=== PATIENT | female | born 1940 | race Caucasian/White ===

== ENCOUNTER 2016-11-01 16:29 | Inpatient (IN) ==
[2016-11-01] MEDS ORDERED: DiphenhydrAMINE 25 MG CAPSULE PO PRN (17:53)
[2016-11-01] MEDS ORDERED: BISACODYL 10 MG SUPPOSITORY RECTALLY PRN (17:53)
[2016-11-01] MEDS ORDERED: LORazepam 1 MG TABLET PO PRN (17:53)
[2016-11-01] MEDS ORDERED: SENNOSIDES 8.6 MG TABLET PO PRN (17:53)
[2016-11-01] MEDS ORDERED: FALL RISK - PHARMACY CONSULT XX PRN (18:00)
[2016-11-01] MEDS: Oxycodone *IR* 5 MG TABLET PO PRN ×2 (18:43→23:29)
[2016-11-01] MEDS ORDERED: WARFARIN - PHARMACY CONSULT MC ONE (18:45)
[2016-11-01] MEDS: COLCHICINE 0.6 MG TABLET PO SCH (21:03)
[2016-11-01] MEDS: BENAZEPRIL 20 MG TABLET PO SCH (21:03)
[2016-11-01] MEDS: DOCUSATE SODIUM 100 MG CAPSULE PO SCH (21:03)
[2016-11-01] MEDS: SENNOSIDES 8.6 MG TABLET PO SCH (21:04)
[2016-11-01] MEDS: ENOXAPARIN 40 MG/0.4 ML INJECTION SQ SCH (21:04)
[2016-11-01] MEDS: FLECAINIDE 50 MG TABLET PO SCH (21:05)
[2016-11-01] MEDS: ACETAMINOPHEN 325 MG TABLET PO SCH (21:05)
[2016-11-01] MEDS: SALINE FLUSH 10ml SYRINGE IVF PRN (21:09)
[2016-11-02] MEDS: MEXILETINE 150 MG CAPSULE PO SCH ×3 (01:07→18:56)
[2016-11-02] MEDS: Oxycodone *IR* 5 MG TABLET PO PRN ×3 (07:38→14:26)
--- NOTE | 2016-11-02 08:03 | Pharmacy Consult ---
Pharmacy Consult-Warfarin - Laboratory Information 11/02/16 04:14 INR 1.33 H - Consult Information 75 y.o. Female with history of chronic a. fib. Patient takes a home warfarin dose of 6 mg po daily. Warfarin dosing was stopped in preparation for 10/31/16 ortho. surgery and was restarted post op. Goal INR range= 2.0 to 3.0. INR remains subtherapeutic and patient has Lovenox 40 mg SQ daily ordered. Will give Warfarin 6 mg po today. Pharmacy will continue to monitor and adjust as needed. Thank you, Sandie Sparks [facility] Date INR dose 10/31 1.07 6 mg 11/01 1.16 6 mg 11/02 1.33 plan: 6 mg
[2016-11-02] MEDS ORDERED: FALL RISK - PHARMACY CONSULT XX ONE (09:00)
[2016-11-02] MEDS ORDERED: POLYETHYL GLYCOL 3350 17gm PACKET PO SCH (09:00)
[2016-11-02] MEDS: COLCHICINE 0.6 MG TABLET PO SCH (09:05)
[2016-11-02] MEDS: BENAZEPRIL 20 MG TABLET PO SCH ×2 (09:05→20:37)
[2016-11-02] MEDS: FLECAINIDE 50 MG TABLET PO SCH ×2 (09:05→20:37)
[2016-11-02] MEDS: ACETAMINOPHEN 325 MG TABLET PO SCH ×4 (09:05→20:41)
[2016-11-02] MEDS: DOCUSATE SODIUM 100 MG CAPSULE PO SCH (09:05)
[2016-11-02] MEDS: OMEGA-3 ACID ESTERS 1 GM CAPSULE PO SCH (09:05)
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
--- NOTE | 2016-11-02 09:35 | IRU History & Physical Report ---
[facility] Date: Chief complaint: My right knee hurts and my left foot hurts HPI: Ms. Black was seen on the inpatient rehabilitation unit. She lives in [place], [place] and her primary care provider is Robin Lopez APRN. She formerly was seen by Dr. Gonzalez who has since moved out of the area. She was having worsening pain in the right knee secondary to primary degenerative arthritis. Patient is followed by Dr. Salamanca who had scheduled an elective right total knee replacement. Prior to the knee replacement getting done, on 10/27/2016 she noted discomfort in the left foot. It became worse and worse and by the next day on October 28 she was in severe pain in the left foot. She came to the emergency department at [facility] on 10/29/2016. Left foot was puffy. There had been no trauma. Uric acid was elevated at 8.6. Venous Doppler was negative. Emergency room physician felt as though the most likely diagnosis was that of acute gout. She was started on colchicine and oxycodone. She states that the pain is better but still is inhibiting her activity quite a bit. She states that she has never had a previous diagnosis of gout but in retrospect she believes that she may have had some in the past. She subsequently was admitted and underwent right total knee replacement by Dr. Salamanca on 10/31/2016. Surgery went well. Because of continued pain in the left foot as well as history of atrial fibrillation and previous DVT which will be subsequently described, she was felt to be a good candidate for inpatient rehabilitation. Prior to admission she lived in her own home independently with her . She has 2 steps at home to get in and out of the house. She was using a cane due to the right knee pain. At the present time she is walking with a walker. With regard to other medical issues, she has a history of atrial fibrillation which she states she has had for a number of years. She states that she has never been on an anticoagulant medication for the atrial fibrillation (although had been on warfarin for the prior DVT). She underwent preoperative cardiac evaluation by Dr. Lema. On 06/23/2016 the patient underwent echocardiogram demonstrating trace mitral regurgitation and with normal ejection fraction at 60 %. On 06/29/2016 she underwent nuclear medicine treadmill test demonstrating an ejection fraction of 73%. 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 For that reason she underwent cardiac catheterization on 07/25/2016. Ejection fraction was 65% on ventriculogram and she had only minimal coronary disease. No intervention was recommended and she was cleared for surgery. She also reports a several year history of significant dyspnea with activity. She says this is limiting to her at times. She does not have a cough. She does not have a tobacco use history. She does not believe she has had prior evaluation of her dyspnea apart from the cardiac evaluation. The reference to the echocardiogram in the outpatient note does not indicate elevated pulmonary artery systolic pressure. In addition, the patient developed acute swelling in the right leg about a year ago. She was subsequently diagnosed with deep venous thrombosis and has therefore been on warfarin for the past 1 year apparently predominantly for the DVT. The following medical conditions are noted and require physician monitoring and treatment. 1. Acute gout with continuing pain. This will impact her rehab and will require ongoing physician management and probable medication adjustment. 2. Hx of DVT diagnosed about a year ago. She will be restarting her warfarin and is at risk for recurrent DVT or bleeding problems with the anticoagulant. 3. Dyspnea: Patient reports a history of chronic dyspnea of uncertain etiology. She does not believe this is been evaluated apart from her cardiac evaluation. This will impact her therapy and recovery as well and will need further evaluation from a medical standpoint as well as nursing monitoring. 4. Severe constipation: She is plagued by constipation. She has not had a bowel movement for the past 6 days. She is at risk for obstruction and dehydration in this regard. 5. Recent total knee replacement. This will require intensive individualized physical therapy and occupational therapy to return her to her previous level of independent functioning. The following therapies will be needed: 1. Physical therapy: for transfers and ambulation and stairs. 2. Occupational therapy: for ADL's and transfers. 3. Dietitian: She will be monitored with regard to adequate nutrition in the immediate postoperative timeframe. 4. Medical management: for the above conditions. 5. 24 hour Rehabilitation Nursing to monitor and address the following: Swelling of the left foot, pain management, dyspnea with activity. Review of Systems - Constitutional Constitutional: Present: anorexia, fatigue - EENMT Eyes: Absent: blurry vision, change in vision, diplopia Balance: Absent: vertigo Mouth/Throat: Absent: pain, sore throat - Cardiovascular Cardiovascular: Present: dyspnea on exertion, edema. Absent: chest pain, palpitations, syncope, orthopnea, heart murmur Rhythm: Present: regular rhythm Vascular: Absent: Raynaud's, intermittent claudication - Respiratory Respiratory: Present: dyspnea, chest congestion. Absent: cough, hemoptysis, wheezing, pain on inspiration, excessive phlegm production - Gastrointestinal Gastrointestinal: Present: change in bowel habits, constipation. Absent: abdominal pain, diarrhea, dyspepsia, early satiety, hematemesis, hematochezia, melena, nausea, vomiting - Musculoskeletal Musculoskeletal: Present: abnormal gait, other (painful and puffy left foot without trauma.) - Integumentary/Breasts Integumentary: Absent: alopecia, change in hair, erythema - Neurological Neurological: Present: headache(s). Absent: abnormal movements, abnormal speech , confusion, convulsions, memory loss - Psychiatric Psychiatric: Absent: anhedonia, anxiety, depression, difficulty concentrating, hopelessness [facility] Patient Stated Medical History Cardiac Arrhythmia Yes: history of A Fib Coronary Artery Disease Yes: LAD ischemia, cardiac clearance per Dr. Carlson Heart Murmur Yes: per patient. Trace of MR per echo. EF 60 % Hypertension Yes Sleep Apnea Yes: no CPAP Constipation Yes: Miralax; ExLax Hepatitis Yes: after reaction to Nystatin Hx Incontinence Yes Osteoarthritis Yes Anesthesia Reactions Yes: has been told by Anesthesia she has ERICH Other Yes: gout Post Menopausal Yes Clinic Medical History (Last Reviewed 10/13/16 @ 09:31 by Yasmany Salamanca MD) High cholesterol (Chronic Medical) HTN (hypertension) (Chronic Medical) Arthritis (Chronic Medical) Hepatitis A (Chronic Medical) DVT (deep venous thrombosis) (Resolved Medical) Medical History Updates: Dyspnea with activitysomewhat chronic. Constipation Surgical History: rt wrist, rt ankle, Lt foot, rt knee arthroscopy Family History: Family History (Last Reviewed 10/13/16 @ 09:31 by Yasmany Salamanca MD) Mother HTN (hypertension) Colon polyps Patient's father ran a filling station. He was killed in a fire apparently started by gasoline accidentally. He was 59 years old. Mother is still living in a [facility]. Has had a portion of her colon removed. Had a severe leg infection and now has a toe infection. - Social History Smoking status: Never smoker Substance use type: does not use Alcohol intake: never Alcohol intake frequency: does not drink Current occupational status: retired Current residence: Apartment/Private Home Social history: Patient is and lives with her in [facility]. 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 Medications Home Medications Medication Instructions Recorded Confirmed Type Benazepril HCl 20 mg PO BID #0 tab 07/25/16 11/01/16 History Cholecalciferol (Vitamin D3) 1 cap PO DAILY #0 07/25/16 11/01/16 History [Vitamin D3] Metoprolol Tartrate 25 mg PO BIDWM #0 tab 07/25/16 11/01/16 History Multivitamin with Minerals [Hair, 1 tab PO DAILY #0 07/25/16 11/01/16 History Skin and Nails] Verapamil HCl 120 mg PO BID #0 07/25/16 11/01/16 History hydroCHLOROthiazide 25 mg PO WB #0 tab 07/25/16 11/01/16 History [Hydrochlorothiazide] Flecainide [Tambocor] 50 mg PO BID 10/29/16 11/01/16 History Furosemide [Lasix] 20 mg PO 2XW 10/29/16 11/01/16 History Victor-3/Dha/Epa/Fish Oil [Fish Oil 1,000 mg PO DAILY 10/29/16 11/01/16 History 1,000 mg Softgel] Warfarin Sodium [Warfarin Sodium] 1 mg PO DAILY 10/29/16 11/01/16 History Warfarin Sodium [Warfarin Sodium] 5 mg PO DAILY 10/29/16 11/01/16 History Acetaminophen [Tylenol] 650 mg PO QID 11/01/16 11/01/16 History Ativan 1 mg PO HS PRN 11/01/16 11/01/16 History Bisacodyl Supp [Dulcolax] 1 supp MA DAILY PRN 11/01/16 11/01/16 History DiphenhydrAMINE [Benadryl] 25 mg PO Q6H PRN 11/01/16 11/01/16 History Docusate Sodium [Colace] 1 cap PO BID 11/01/16 11/01/16 History Enoxaparin [Lovenox] 40 mg SQ Q24H 11/01/16 11/01/16 History Milk of Magnesia [Mom] 30 ml PO O 11/01/16 11/01/16 History Nozin Nasal Swab 1 each BRITTNEY 0600,1400,2200 11/01/16 11/01/16 History Oxycodone *Ir* [Roxicodone *Ir*] 5 - 15 mg PO Q3H PRN 11/01/16 11/01/16 History Polyethylene Glycol 3350 [Miralax] 1 packet PO DAILY 11/01/16 11/01/16 History Sennosides 17.2 mg PO DAILY PRN 11/01/16 11/01/16 History Sennosides 17.2 mg PO HS 11/01/16 11/01/16 History Allergies Allergy/AdvReac Type Severity Reaction Status Date / Time nystatin Allergy Severe ANAPHYLACTIC Verified 10/31/16 06:06 SHOCK adhesive tape AdvReac Unknown peels her Verified 10/31/16 06:06 skin Results IRU - Labs Labs: Laboratory reviewed, prior notes reviewed, outside cardiology evaluation reviewed. Exam Vital Signs: Temperature 98.2 F 11/01/16 20:00 Pulse Rate 73 11/01/16 21:07 Respiratory Rate 18 11/01/16 21:07 Blood Pressure 144/85 H 11/01/16 20:00 Pulse Oximetry 97 11/01/16 21:07 Height/Weight/BMI: Height 1.73 m Weight 98.3 kg Body Mass Index 32.9 - Constitutional Present: mild distress, well nourished, well developed, obese. Absent: disheveled - Routine HEENT Exam Head: Present: normocephalic, atraumatic. Absent: cushingoid faces, laceration Eye: Present: EOMI, PERRL. Absent: conjunctival icterus, scleral injection, conjunctivae pink, periorbital swelling ENT: Present: mucous membranes moist - Routine Neck Exam Present: supple, full ROM. Absent: lymphadenopathy, thyromegaly - Routine Chest/Breast/Axilla Exam Chest wall: Absent: tenderness Axillae: Absent: lymphadenopathy - Routine Respiratory Exam Present: CTA bilaterally. Absent: accessory muscle use, respiratory distress, rhonchi, stridor, wheezes, crackles - Routine Cardiovascular Exam Present: S1, S2, no murmur, irregularly irregular. Absent: S3, S4 - Routine Abdominal Exam Present: soft, normoactive bowel sounds, non distended. Absent: tenderness, distended, rebound, guarding, firm, organomegaly, mass - Routine Extremities Exam Present: edema Comments: Left foot remains puffy. No bruising and no redness and no warmth is noted. Pulses are good. First MP joint not particularly more involved in any other part of the foot. Right knee is wrapped and I did not remove the dressing. - Routine Skin Exam Present: intact, dry. Absent: erythema, urticaria, rash - Routine Neurological Exam Present: alert, oriented X3, CN II-XII intact, abnormal gait. Absent: sensory deficit, motor deficit - Routine Psychiatric Exam Present: normal affect, normal thought process, cooperative, good insight, good judgment. Absent: suicidal ideation, depressed, anxious Sepsis Assessment - Evaluation Sepsis screening result: No Definite Risk IRU A/P (1) Primary osteoarthritis of right knee Current visit: No Status: Chronic Patient was using a cane at home and now is using a walker after her surgery. She will need to learn new gait and ambulation skills along with transfers. (2) Status post total knee replacement, right Current visit: Yes Status: Acute There is no evidence of infection or inflammation at surgical site. (3) A-fib Qualifiers: Atrial fibrillation type: chronic Qualified Code(s): I48.2 - Chronic atrial fibrillation Current visit: No Status: Chronic Patient is currently on warfarin although she states it is for her previous DVT. She has minimal coronary disease on catheterization. Has been followed by cardiology. We are restarting her Coumadin post surgery. She will need to be monitored with regard to INRs as well as lightheadedness palpitations or other symptoms of her atrial fibrillation. (4) HTN (hypertension) Qualifiers: Hypertension type: essential hypertension Qualified Code(s): I10 - Essential (primary) hypertension Current visit: No Status: Chronic She is on antihypertensive medications and her blood pressures will be monitored. (5) Acute gout Qualifiers: Gout site: foot Gout etiology: idiopathic Current visit: Yes Status: Acute Has apparent acute gout involving the left foot. This is somewhat atypical presentation. However has been improved by colchicine. Continues to have pain in the foot which will impact her therapy. (6) Constipation by delayed colonic transit Current visit: Yes Status: Acute Has acute constipation superimposed upon chronic difficulty with her bowels. She is at risk for obstruction and dehydration. We will work on mobilization of stool. DVT Prophylaxis: SCD's, Coumadin Resuscitation Status: Full Code - Course Hospital Course: Monroe Barrientos MD: - Interventions to Obtain Goals PT Treatment Plan: Balance/Proprioception, Functional Activities, Gait Training , Patient/Family Education OT Treatment Plan: ADL (Basic Care), Balance Training, IADL, Pt./Family Education, Ther. Exercise for ADL Goals Progress/Modifications: The patient will require an intensive individualized program of physical therapy , occupational therapy as well as 24-hour nursing rehabilitation and physician oversight. She has several medical conditions that we will be following closely including hypertension, atrial fibrillation with reinstitution of warfarin, acute gouty arthritis which may require medication adjustment and also which will impact her therapy. In addition she has severe constipation and history of DVT.
--- NOTE | 2016-11-02 10:05 | IRU 24Hr Post Admit Eval ---
24 Hr Post Admission Physical - Relevant Changes Relevant Changes: No Reviewed: I have reviewed the patient's information and concur with the finding and results of the pre-admission screen. Certification: I certify the patient for rehabilitation. - Patient Condition (1) Primary osteoarthritis of right knee Status: Chronic Code(s): M17.11 - Unilateral primary osteoarthritis, right knee Classification: Present on IRF Admission, Diagnosis Requiring Medical Follow Up (2) Status post total knee replacement, right Status: Acute Code(s): Z96.651 - Presence of right artificial knee joint Classification: Present on IRF Admission, IRF Tx That Should Address Diagnosis, Diagnosis Requiring Medical Follow Up (3) A-fib Status: Chronic Qualifiers: Atrial fibrillation type: chronic Qualified Code(s): I48.2 - Chronic atrial fibrillation Code(s): I48.91 - Unspecified atrial fibrillation Classification: Present on IRF Admission, IRF Tx That Should Address Diagnosis, Diagnosis Requiring Medical Follow Up (4) HTN (hypertension) Status: Chronic Qualifiers: Hypertension type: essential hypertension Qualified Code(s): I10 - Essential (primary) hypertension Code(s): I10 - Essential (primary) hypertension Classification: Present on IRF Admission, Diagnosis Requiring Medical Follow Up (5) Acute gout Status: Acute Qualifiers: Gout site: foot Gout etiology: idiopathic Code(s): M10.9 - Gout, unspecified Classification: Present on IRF Admission, IRF Tx That Should Address Diagnosis, Diagnosis Requiring Medical Follow Up (6) Constipation by delayed colonic transit Status: Acute Code(s): K59.01 - Slow transit constipation Classification: Present on IRF Admission, IRF Tx That Should Address Diagnosis, Diagnosis Requiring Medical Follow Up - Prior Functional Status Lives With: Spouse Residence Type: Apartment/Private Home Assitive Devices: Straight Cane Prior Functional Status: Indep. at home or school, Used assistive device - Current Functional Status Failed Alternative Therapy: Arrived from Acute Care Patient Requirements: The patient requires oversight by rehabilitation physician to manage their rehabilitation treatment plan and multidisciplinary approach to care that can only be provided in an IRF and requires a multidisciplinary approach to care, provided by professional PTs, OTs, STs, dieticians, RTs, rehabilitation nurses and is not available in lesser levels of care. Limitiations Req: Mobility Impairment, ADL Impairment, Limited Mobility, Respiratory Impairment Physical Therapy Minutes: 90 Occupational Therapy Minutes: 90 Therapy: The patient is to receive therapy at least 5 days a week. - Complications/Comorbidities Impact on Functional Outcomes: Her severe pain in the left foot as well as her chronic dyspnea will impact functional outcome. This will need to be monitored and treated as best we can in order to allow her to achieve her previous level of functioning at home independently. Barriers to Discharge: Weakness, Pain Control, Medical Limitation - Plan to Avoid Complications Plan to Avoid Complications: The patient cannot receive this care in a lesser intensive setting such as [facility] or Outpatient Therapy due to the patient requiring the following : Monitoring of INR as we restart her Coumadin, adjustment of medications regarding her acute gout, need for 24-hour rehabilitation nursing to monitor her oxygen saturations and dyspnea along with pain management, monitoring her blood pressure in the acute postoperative phase.
--- NOTE | 2016-11-02 11:08 | Progress Note ---
Progress Note: Verena reports continued problem with a headache. This is in the frontal area and the back of her neck. This sounds like a muscle contraction headache to me. We will try an ice pack as needed. Neurologically she is fully intact.
[2016-11-02] MEDS ORDERED: WARFARIN 6 MG TABLET PO ONE (12:00)
[2016-11-02] MEDS ORDERED: FLEET PHOSPHO - SODA ENEMA 133ml PR PRN (15:18)
[2016-11-02] MEDS ORDERED: BISACODYL 10 MG SUPPOSITORY RECTALLY SCH (20:00)
[2016-11-02] MEDS: SENNOSIDES 8.6 MG TABLET PO SCH (20:37)
[2016-11-02] MEDS: ENOXAPARIN 40 MG/0.4 ML INJECTION SQ SCH (20:38)
[2016-11-02] MEDS: POLYETHYL GLYCOL 3350 17gm PACKET PO SCH (20:39)
[2016-11-03] MEDS: MEXILETINE 150 MG CAPSULE PO SCH ×3 (01:00→17:11)
[2016-11-03] MEDS: Oxycodone *IR* 5 MG TABLET PO PRN ×3 (07:37→17:42)
[2016-11-03] MEDS ORDERED: ONDANSETRON ODT 4 MG TABLET PO PRN (08:29)
[2016-11-03] MEDS: FUROSEMIDE 20 MG TABLET PO SCH (08:54)
[2016-11-03] MEDS: ACETAMINOPHEN 325 MG TABLET PO SCH ×4 (08:54→20:15)
[2016-11-03] MEDS: FLECAINIDE 50 MG TABLET PO SCH ×2 (08:54→20:14)
[2016-11-03] MEDS: OMEGA-3 ACID ESTERS 1 GM CAPSULE PO SCH (08:54)
[2016-11-03] MEDS: BENAZEPRIL 20 MG TABLET PO SCH ×2 (08:54→20:14)
[2016-11-03] MEDS: POLYETHYL GLYCOL 3350 17gm PACKET PO SCH ×2 (08:55→20:18)
--- NOTE | 2016-11-03 09:47 | Pharmacy Consult ---
Pharmacy Consult-Warfarin - Laboratory Information 11/02/16 11/03/16 04:14 04:19 INR 1.33 H 1.52 H 75 y.o. Female with history of chronic a. fib. Patient takes a home warfarin dose of 6 mg po daily. Warfarin dosing was stopped in preparation for 10/31/16 ortho. surgery and was restarted post op. Goal INR range= 2.0 to 3.0. Date INR Dose 10/31 1.07 6 mg 11/01 1.16 6 mg 11/02 1.33 6 mg 11/03 1.52 Plan 6 mg INR remains subtherapeutic and patient has Lovenox 40 mg SQ daily ordered. Will give Warfarin 6 mg po today. Pharmacy will continue to monitor and adjust as needed. Thanks for the Protocol, Meng Ghotra, Pharmacist.
--- NOTE | 2016-11-03 10:29 | IRU Progress Note ---
- Subjective/Serverity of Illness Verena was evaluated in her room today. She is struggling with nausea. Also has discomfort in the area below the right knee which was replaced. Medical status will be reviewed subsequently. From a therapy standpoint she is just getting started with therapies. She is cooperative. However the headache and the neck discomfort have been somewhat limiting for her. She is walking with contact-guard assistance over 100 feet. However requires maximal assistance for transfers. Update on medical conditions as follows: 1. Acute gout with continuing pain. Colchicine has now been discontinued. She states that the left foot is somewhat puffy but it is no longer painful. It is significantly improved. 2. Hx of DVT diagnosed about a year ago. Patient remains on warfarin with pharmacy monitoring and dosing. No evidence of active bleeding. 3. Dyspnea: Patient reports a history of chronic dyspnea of uncertain etiology. No change in degree of dyspnea. There is no cough and sputum and her pulmonary exam is negative. 4. Severe constipation: Patient received an enema yesterday with good results. Nevertheless, she tends toward constipation she states. 5. Recent total knee replacement. Pain control continues to be an issue. She is on oxycodone. She would like to have another pain pill at present after having received on about 3 hours or so ago. 6. Nausea: She is been nauseated for the past 24 hours off and on. She has not thrown up but does feel as though there is food in the back of her throat at times. 8/2 a bowl of cream of wheat this morning. Does not have abdominal pain. We discussed the possibility of reflux being a factor. She is getting Zofran with some benefit. 6. Headaches: Headaches are in general better. Does have some discomfort in the back of her neck. Ice pack is beneficial for her. Exam Vital Signs: Temperature 98.1 F 11/03/16 08:00 Pulse Rate 77 11/03/16 08:00 Respiratory Rate 20 11/03/16 08:00 Blood Pressure 149/69 H 11/03/16 08:00 Pulse Oximetry 93 11/03/16 08:00 Height/Weight/BMI: Height 1.73 m Weight 97.8 kg Body Mass Index 32.9 Comments: The patient is awake, alert and oriented. She is sitting in her room. She does complain of right knee pain as anticipated. However also has significant nausea without vomiting. Unclear if this is related to the pain medication or not. Pupils are equal. The neck is supple. Chest: Clear to auscultation bilaterally. Cor: irregular rhythm with no gallop, click nor murmur Abd: soft with normo-active bowel sounds. There are no masses, no tenderness and no guarding. Extremities: Stephanie- wound evaluation is unremarkable. Right leg is somewhat edematous. Results IRU - Labs Labs: I reviewed her labs and discussed with the hospitalist service. Sepsis Assessment - Evaluation Sepsis screening result: No Definite Risk IRU A/P (1) Primary osteoarthritis of right knee Current visit: No Status: Chronic Continues to complain of discomfort at the operative site. This is anticipated. Chief area of discomfort is actually an area just below the knee proper. No evidence of active infection is seen. (2) Status post total knee replacement, right Current visit: Yes Status: Acute (3) A-fib Qualifiers: Atrial fibrillation type: chronic Qualified Code(s): I48.2 - Chronic atrial fibrillation Current visit: Yes Status: Chronic Patient remains in what appears to be chronic atrial fibrillation. She is on warfarin with doses monitored and treated by pharmacy. No evidence of active bleeding. No lightheadedness and no chest pain. (4) HTN (hypertension) Qualifiers: Hypertension type: essential hypertension Qualified Code(s): I10 - Essential (primary) hypertension Current visit: No Status: Chronic Blood pressures are borderline in the 140s. (5) Acute gout Qualifiers: Gout site: foot Gout etiology: idiopathic Current visit: Yes Status: Acute Presumptive diagnosis of gout involving the left foot. There is some puffiness remaining but no pain. This is a significant improvement. Colchicine has been discontinued. (6) Constipation by delayed colonic transit Current visit: Yes Status: Acute Continues to complain of constipation although did have results from her enema yesterday. (7) Nausea Current visit: Yes Status: Acute Patient has been struggling with nausea over the past 24 hours. It is not clearly related to pain nor pain medication. However I think this is still a possibility. Could also be related to underlying reflux. Have discussed with hospitalists and we will start a PPI. I did check on interaction with Flecanide and Mexitil and it looks like there is no reaction between the PPI and these medications. (8) Muscle contraction headache Current visit: Yes Status: Acute Continues to complain of headache although it is improved. Main area of discomfort is the posterior neck. This is improved with the use of an ice pack. Her symptoms are consistent with a muscle contraction headache. No other neurologic symptoms are noted at this time but we are monitoring. DVT Prophylaxis: SCD's, Coumadin Resuscitation Status: Full Code - Course Hospital Course: Monroe Barrientos MD: 11/03/16 10:34 Patient has multiple medical problems that we are monitoring including atrial fibrillation with use of warfarin, muscle contraction headache, nausea and possible reflux, gout and constipation. She is progressing with therapy. Walking over 100 feet with contact-guard assist. Requires maximal assistance for most transfers however. - Interventions to Obtain Goals PT Treatment Plan: Balance/Proprioception, Functional Activities, Gait Training , Patient/Family Education, Therapeutic Exercise OT Treatment Plan: ADL (Basic Care), Balance Training, IADL, Pt./Family Education, Ther. Exercise for ADL Goals Progress/Modifications: Please note that the patient's individual plan of care was developed and documented today, requiring review of therapy notes, medical conditions and anticipated functional recovery. This required additional medical decision making with regard to interaction of the patient's medical issues with the anticipated functional recovery. Please see separate document from today. Time spent with patient and on floor reviewing data and documentin minutes Barriers to dismissal: Pain in right knee, nausea, headache and neck discomfort , constipation. Medical decision-making: Multiple issues were addressed today including her nausea which is possibly related to pain medication or pain itself. Could also be related to reflux. PPI has been started today. In addition we discussed her constipation and she is on appropriate intervention in this regard. Also evaluated her gout. Colchicine has been discontinued. Left foot puffy but no longer painful. Also discussed pain in the right knee as well as her headaches. I have coordinated treatment with hospitalists as well.
--- NOTE | 2016-11-03 10:39 | IRU Plan of Care ---
[facility] Overall Plan of Care - Date Date: 11/03/16 - Patient Impairments (1) Primary osteoarthritis of right knee Code(s): M17.11 - Unilateral primary osteoarthritis, right knee Status: Chronic Classification: Present on IRF Admission, Diagnosis Requiring Medical Follow Up (2) Status post total knee replacement, right Code(s): Z96.651 - Presence of right artificial knee joint Status: Acute Classification: Present on IRF Admission, IRF Tx That Should Address Diagnosis, Diagnosis Requiring Medical Follow Up (3) A-fib Qualifiers: Atrial fibrillation type: chronic Qualified Code(s): I48.2 - Chronic atrial fibrillation Code(s): I48.91 - Unspecified atrial fibrillation Status: Chronic Classification: Present on IRF Admission, IRF Tx That Should Address Diagnosis, Diagnosis Requiring Medical Follow Up (4) HTN (hypertension) Qualifiers: Hypertension type: essential hypertension Qualified Code(s): I10 - Essential (primary) hypertension Code(s): I10 - Essential (primary) hypertension Status: Chronic Classification: Present on IRF Admission, Diagnosis Requiring Medical Follow Up (5) Acute gout Qualifiers: Gout site: foot Gout etiology: idiopathic Code(s): M10.9 - Gout, unspecified Status: Acute Classification: Present on IRF Admission, IRF Tx That Should Address Diagnosis, Diagnosis Requiring Medical Follow Up (6) Constipation by delayed colonic transit Code(s): K59.01 - Slow transit constipation Status: Acute Classification: Present on IRF Admission, IRF Tx That Should Address Diagnosis, Diagnosis Requiring Medical Follow Up (7) Nausea Code(s): R11.0 - Nausea Status: Acute Classification: IRF Tx That Should Address Diagnosis, Complications Since IRF Admission (8) Muscle contraction headache Code(s): G44.209 - Tension-type headache, unspecified, not intractable Status : Acute Classification: IRF Tx That Should Address Diagnosis, Complications Since IRF Admission - Relevant Changes Relevant Changes: No Reviewed: I have reviewed the patient's information and concur with the finding and results of the pre-admission screen. Certification: I certify the patient for rehabilitation. - Medical Prognosis Medical Prognosis: Good Vital Signs: Last Vital Signs Temp 98.1 F 11/03/16 08:00 Pulse 77 11/03/16 08:00 Resp 20 11/03/16 08:00 BP 149/69 H 11/03/16 08:00 Pulse Ox 93 11/03/16 08:00 - Anticipated Interventions Anticipated Interventions: The patient requires inpatient IRF care for PT, OT, and/or ST for residuals remaining from right total knee replacement and recent acute gouty arthritis resulting in muscular weakness and strength deficits. ROM Deficit: Right Lower Extremity Strength Deficits: Right Lower Extremity - FIM Ambulation Distance: 197 Toileting Adaptive Equipment: Grab Bars Number of Incontinent Voids: 1 - Current Functional Status Failed Alternative Therapy: Arrived from Acute Care Patient Requires: The patient requires oversight by rehabilitation physician to manage their rehabilitation treatment plan and multidisciplinary approach to care that can only be provided in an IRF and requires a multidisciplinary approach to care, provided by professional PTs, OTs, STs, dieticians, RTs, rehabilitation nurses and is not available in lesser levels of care. Physical Therapy Minutes: 90 Occupational Therapy Minutes: 90 Therapy: The patient is to receive therapy at least 5 days a week. - Anticipated LOS/Outcomes Anticipated Functional Outcome: It is anticipated that the patient will achieve modified independent level of functioning and be able to return to her previous level of care at her home with . Anticipated Length of Stay: 7 Anticipated DC Destination: Home, Self [facility]ci Safety Plan: The patient will be provided with the development of a Home Safety Plan for return to a home or home-like environment and and to ensure safety post discharge. - Plan to Avoid Complications Barriers to Attaining Goals: Weakness, Pain Control, Medical Limitation Plan to Avoid Complications: The patient cannot receive this care in a lesser intensive setting such as Penitentiary or Outpatient Therapy due to the patient requiring the following : 24 hour rehabilitation nursing monitoring and treatment of pain at the operative site, headache management and monitoring, gouty arthritis treatment and monitoring, new onset of nausea with possible reflux monitoring and treatment. .
--- NOTE | 2016-11-03 11:18 | Progress Note ---
Subjective: Madeline is seen today in follow up for recent right total knee arthroplasty on by Dr. Salamanca. She is seen in her room, sitting in her recliner and admits that she feels a little tired at the movement due to recently completing her morning therapy. She complains of right knee pain which she rates 6/10 while sitting and states is much worse with movement and ambulation. She also complains of neck pain and stiffness which she believes is related to muscular tension. She denies any fevers, changes in vision though does admit to a frontal headache at times which she reports is identical to her prior headaches. She states that ice helps her neck pain. She also reports increased nausea immediately after eating without emesis today, as well as decreased appetite. She was successful in having a large BM yesterday with the aid of bowel motivation but believes that she still has some stool present. She has a history of chronic constipation. She denies any chest pain, shortness of breath, abdominal pain or dysuria. She remains on Coumadin for anticoagulation in light of her history of a-fib and follows with Dr. Lema. She has obstructive sleep apnea which was recently diagnosed on a sleep study on 09/12/16. She openly refuses using a CPAP machine as she felt it would be more of a bother than a help. She says she has heard that if the machines are not kept clean, "they can make you sick." Review of medical records and nursing notes indicates that overall she is doing well. On exam, she is sitting in her recliner and is alert and orientated x 3. She is noted to tachypneic initially on exam but states it is due to recently having completed therapy. Cardiac exam reveals regular rate and rhythm and lungs are diminished bilaterally without cough, wheezing or rales. Abdomen is soft, nontender with active bowel sounds. Dressing to right knee is clean, dry and intact. 1+ edema noted to bilateral lower extremities and N/V intact. CBC today revealed stable anemia with hemoglobin at 10.7. INR remains subtherapeutic at 1.52 with pharmacy to manage. Vital signs stable, remaining afebrile. No signs of meningismus or neurologic changes. Objective Vital signs: Temperature 98.1 F 11/03/16 08:00 Pulse Rate 77 11/03/16 08:00 Respiratory Rate 20 11/03/16 08:00 Blood Pressure 149/69 H 11/03/16 08:00 Pulse Oximetry 93 11/03/16 08:00 Height/Weight/BMI: Height 5 ft 8 in Weight 215 lb 9.793 oz Body Mass Index 32.9 - Constitutional Present: mild distress (neck pain - ice pack in place with improvement.), well nourished, well developed, cooperative - Routine HEENT Exam Head: Present: normocephalic, atraumatic Eye: Present: PERRL. Absent: conjunctival icterus ENT: Present: mucous membranes moist - Routine Respiratory Exam Present: decreased breath sounds, CTA bilaterally. Absent: rhonchi, stridor, wheezes Comments: tachypnea on exam, improves with rest. - Routine Cardiovascular Exam Present: RRR, S1, S2 - Routine Abdominal Exam Present: soft, normoactive bowel sounds, non distended, non tender - Routine Extremities Exam Present: edema (1+ bilaterally), pulses intact, normal capillary refill Comments: limited ROM right knee 2nd to recent TKA. - Routine Back/Spine/Pelvis Exam Back/Spine: Present: full ROM - Routine Musculoskeletal Exam Musculoskeletal: Present: moving extremities well, limited range of motion ( right knee) - Routine Skin Exam Present: dry, warm. Absent: jaundice Comments: bandage to right knee is clean, dry and intact. - Routine Neurological Exam Present: alert, oriented X3, moving all extremities, normal speech. Absent: facial asymmetry - Routine Lymphatic Exam Lymphatic: Absent: lymphedema - Routine Psychiatric Exam Present: normal affect, cooperative, good insight, good judgment Results - Labs CBC & Chem 7: 11/03/16 04:19 11/02/16 04:14 Assessment and Plan (1) Status post total knee replacement, right Current visit: Yes Status: Acute (2) ERICH (obstructive sleep apnea) Current visit: Yes Status: Acute (3) A-fib Current visit: Yes Status: Chronic DVT Prophylaxis: SCD's, Coumadin GI Prophylaxis: other (Priolosec) Resuscitation Status: Full Code Assessment and Plan: 11/03/16: Omaran. Assessment S/P right knee arthroplasty 10/31/16 - Dr. Salamanca. Eric. fib with chronic anticoagulation with warfarin, chronic - Dr. Lema. Coronary artery disease, chronic. * Echo performed 06/23/16 showed trace mitral regurg and ejection fraction 60%. On 06/29/16 she underwent nuclear treadmill test with ejection fraction 73%, however there was moderate LAD ischemia on the study. She then underwent cardiac catheterization on 07/25/16. She had findings of only minimal coronary disease, so no intervention was recommended. She reports a history of "heavy breathing" and shortness of breath with activity which sometimes limits her. She denies any history of COPD or asthma. Patient has obstructive sleep apnea. This was recently diagnosed on sleep study 09/12/16. Patient te High cholesterol, chronic. HTN (hypertension), chronic. Osteoarthritis, chronic.l Hepatitis following a reaction to nystatin 02/2016, resolved. DVT(occurred post hospital stay) -2015, resolved. Gout, chronic. Sleep apnea, chronic. * Diagnosed on sleep study 09/12/16; refused CPAP machine as she felt it would be more of a bother. Plan: Continue therapy and pain control per Dr. Barrientos for improvement in functional ability and strength. Patient complains of nausea following eating small amounts. History of constipation. Continue bowel motivation with Dulcolax suppository PRN as well as Senokot and colace. Will obtain KUB now for further evaluation of nausea and constipation. Initiate Prilosec for possible GERD in light of symptoms of hiccups and fullness. Zofran as needed for nausea/vomiting. Hemoglobin stable following minor blood loss anemia with hemoglobin dropping from 14.5 preoperatively to current value of 10.7. Continue to monitor hemoglobin closely and monitor stools closely for signs of bleeding in light of anticoagulation with Coumadin. Continue Coumadin for anticoagulation with pharmacy to manage. Current INR 1.52. Continue bridge therapy with Lovenox for DVT prophylaxis until INR is therapeutic. Vital signs well controlled. Monitor blood pressures closely. Continue Lotensin, lasix, HCTZ metoprolol for blood pressure as well as flecainide and verapamil for chronic a-fib. Currently sinus rhythm. Encourage incentive spirometry for pulmonary toileting and monitor daily weight for signs of fluid overload. Will recheck labs on 11/06 to monitor blood counts, electrolytes and renal function. - Time spent with patient 25 - 35 minutes Sepsis Assessment - Evaluation Sepsis screening result: No Definite Risk Hospital Course Summary Disclaimer: The visit summary below is not to be considered part of the above Progress Note. Hospital Course: Status post total right knee arthroplasty - Dr. Salamanca (10/31/16) Hypertension Chronic Anticoagulation History of atrial fibrillation History of DVT Obstructive sleep apnea Gout Osteoarthritis Chronic constipation 11/02/16 hospitalist consult Agree with placement to IRU for intensive individualized program to improve her functional abilities/balance, etc Pharmacy will manage patient's anticoagulation. Will follow gout symptoms. Will DC the colchicine as she is past her acute flare and to reduce polypharmacy. Her uric acid level is elevated. Would recommend she follow-up with her PCP on an outpatient basis to discuss pros and cons of initiation of antihyperuricemic therapy depending on how frequently she has flares. Encouraged patient to follow-up with her PCP to discuss CPAP for her obstructive sleep apnea. Highly encourage her to comply with this. Continue to work on bowel motivation Pain control per Dr. Barrientos Appreciate the consult. 11/03/16 Continue therapy and pain control per Dr. Barrientos for improvement in functional ability and strength. Patient complains of nausea following eating small amounts. History of constipation. Continue bowel motivation with Dulcolax suppository PRN as well as Senokot and colace. Will obtain KUB now for further evaluation of nausea and constipation. Initiate Prilosec for possible GERD in light of symptoms of hiccups and fullness. Zofran as needed for nausea/vomiting. Hemoglobin stable following minor blood loss anemia with hemoglobin dropping from 14.5 preoperatively to current value of 10.7. Continue to monitor hemoglobin closely and monitor stools closely for signs of bleeding in light of anticoagulation with Coumadin. Continue Coumadin for anticoagulation with pharmacy to manage. Current INR 1.52. Continue bridge therapy with Lovenox for DVT prophylaxis until INR is therapeutic. Vital signs well controlled. Monitor blood pressures closely. Continue Lotensin, Lasix, HCTZ metoprolol for blood pressure as well as flecainide and verapamil for chronic a-fib. Currently sinus rhythm. Encourage incentive spirometry for pulmonary toileting and monitor daily weight for signs of fluid overload. Will recheck labs on 11/06 to monitor blood counts, electrolytes and renal function.
[2016-11-03] MEDS: OMEPRAZOLE 20 MG CAPSULE PO SCH (11:58)
[2016-11-03] MEDS ORDERED: WARFARIN 6 MG TABLET PO SCH (12:00)
--- NOTE | 2016-11-03 12:03 | XRay Report ---
Indication: nausea, constipation PROCEDURE: XR KUB w upright: Encounter: Initial Comparison: None Findings: The visualized lung bases are clear. There is no free air on the upright view. The bowel gas pattern is nonobstructive and nonspecific. Gas is seen in nondilated small and large bowel to the level of the rectum. Moderate stool is seen throughout the colon. Impression: Nonobstructive nonspecific bowel gas pattern. .
[2016-11-03] MEDS: SENNOSIDES 8.6 MG TABLET PO SCH (20:14)
[2016-11-03] MEDS: ENOXAPARIN 40 MG/0.4 ML INJECTION SQ SCH (20:18)
[2016-11-04] MEDS: MEXILETINE 150 MG CAPSULE PO SCH ×3 (00:51→17:21)
[2016-11-04] MEDS: OMEPRAZOLE 20 MG CAPSULE PO SCH ×2 (04:35→08:22)
[2016-11-04] MEDS: OMEGA-3 ACID ESTERS 1 GM CAPSULE PO SCH (08:20)
[2016-11-04] MEDS: BENAZEPRIL 20 MG TABLET PO SCH ×2 (08:21→20:03)
[2016-11-04] MEDS: POLYETHYL GLYCOL 3350 17gm PACKET PO SCH ×2 (08:22→19:35)
[2016-11-04] MEDS: FLECAINIDE 50 MG TABLET PO SCH ×2 (08:22→20:03)
[2016-11-04] MEDS: ACETAMINOPHEN 325 MG TABLET PO SCH ×4 (08:23→23:05)
[2016-11-04] MEDS: Oxycodone *IR* 5 MG TABLET PO PRN ×4 (08:26→23:02)
--- NOTE | 2016-11-04 09:16 | Pharmacy Consult ---
Pharmacy Consult-Warfarin - Laboratory Information 11/02/16 11/03/16 11/04/16 04:14 04:19 04:37 INR 1.33 H 1.52 H 1.75 H COUMADIN CONSULT: 75 y.o. Female with history of chronic a. fib. Patient takes a home warfarin dose of 6 mg po daily. Warfarin dosing was stopped in preparation for 10/31/16 ortho. surgery and was restarted post op. Goal INR range= 2.0 to 3.0. Date INR Dose 10/31 1.07 6 mg 11/01 1.16 6 mg 11/02 1.33 6 mg 11/03 1.52 6 mg 11/04 1.75 Plan 6 mg INR remains subtherapeutic and patient has Lovenox 40 mg SQ daily ordered. Will give Warfarin 6 mg po today. Pharmacy will continue to monitor and adjust as needed. Thanks for the Protocol, Meng Ghotra, Pharmacist.
[2016-11-04] MEDS ORDERED: WARFARIN 6 MG TABLET PO SCH (12:00)
--- NOTE | 2016-11-04 14:53 | Progress Note ---
Subjective: Patient is seen in her room after finishing therapy. Overall she feels she is doing okay. She has been having some pain, currently it is 4/10. No complaint of chest pain or shortness of breath. No lightheadedness or dizziness. Reports appetite is okay. She no longer has the foot pain which was attributed to gout. Objective Vital signs: Temperature 98.4 F 11/04/16 08:00 Pulse Rate 73 11/04/16 08:00 Respiratory Rate 10 11/04/16 08:00 Blood Pressure 137/67 11/04/16 08:00 Pulse Oximetry 94 11/04/16 08:00 Height/Weight/BMI: Height 1.73 m Weight 97.8 kg Body Mass Index 32.9 - Constitutional Present: well nourished, well developed - Routine HEENT Exam ENT: Present: mucous membranes moist - Routine Respiratory Exam Present: CTA bilaterally. Absent: wheezes - Routine Cardiovascular Exam Present: RRR. Absent: murmur - Routine Extremities Exam Present: edema (to surgical extremity), normal capillary refill - Routine Skin Exam Present: dry, warm - Routine Neurological Exam Present: alert, oriented X3 - Routine Lymphatic Exam Lymphatic: Absent: adenopathy - Routine Psychiatric Exam Present: normal affect, cooperative Results - Labs CBC & Chem 7: 11/03/16 04:19 11/02/16 04:14 Assessment and Plan (1) ERICH (obstructive sleep apnea) Current visit: Yes Status: Acute (2) A-fib Current visit: Yes Status: Chronic (3) Status post total knee replacement, right Current visit: Yes Status: Acute Assessment and Plan: 11/03/16: Lida. Assessment S/P right knee arthroplasty 10/31/16 - Dr. Salamanca. A. fib with chronic anticoagulation with warfarin, chronic - Dr. Lema. Coronary artery disease, chronic. High cholesterol, chronic. HTN (hypertension), chronic. Osteoarthritis, chronic.l Hepatitis following a reaction to nystatin 02/2016, resolved. DVT(occurred post hospital stay) -2015, resolved. Gout, chronic. Sleep apnea, chronic. Plan: Overall doing well. Will recheck labs on 11/06 to monitor blood counts, electrolytes and renal function. Sepsis Assessment - Evaluation Sepsis screening result: No Definite Risk Hospital Course Summary Disclaimer: The visit summary below is not to be considered part of the above Progress Note. Hospital Course: Status post total right knee arthroplasty - Dr. Salamanca (10/31/16) Hypertension Chronic Anticoagulation History of atrial fibrillation History of DVT Obstructive sleep apnea Gout Osteoarthritis Chronic constipation 11/02/16 hospitalist consult Agree with placement to IRU for intensive individualized program to improve her functional abilities/balance, etc Pharmacy will manage patient's anticoagulation. Will follow gout symptoms. Will DC the colchicine as she is past her acute flare and to reduce polypharmacy. Her uric acid level is elevated. Would recommend she follow-up with her PCP on an outpatient basis to discuss pros and cons of initiation of antihyperuricemic therapy depending on how frequently she has flares. Encouraged patient to follow-up with her PCP to discuss CPAP for her obstructive sleep apnea. Highly encourage her to comply with this. Continue to work on bowel motivation Pain control per Dr. Barrientos Appreciate the consult. 11/03/16 Continue therapy and pain control per Dr. Barrientos for improvement in functional ability and strength. Patient complains of nausea following eating small amounts. History of constipation. Continue bowel motivation with Dulcolax suppository PRN as well as Senokot and colace. Will obtain KUB now for further evaluation of nausea and constipation. Initiate Prilosec for possible GERD in light of symptoms of hiccups and fullness. Zofran as needed for nausea/vomiting. Hemoglobin stable following minor blood loss anemia with hemoglobin dropping from 14.5 preoperatively to current value of 10.7. Continue to monitor hemoglobin closely and monitor stools closely for signs of bleeding in light of anticoagulation with Coumadin. Continue Coumadin for anticoagulation with pharmacy to manage. Current INR 1.52. Continue bridge therapy with Lovenox for DVT prophylaxis until INR is therapeutic. Vital signs well controlled. Monitor blood pressures closely. Continue Lotensin, Lasix, HCTZ metoprolol for blood pressure as well as flecainide and verapamil for chronic a-fib. Currently sinus rhythm. Encourage incentive spirometry for pulmonary toileting and monitor daily weight for signs of fluid overload. Will recheck labs on 11/06 to monitor blood counts, electrolytes and renal function. 11/04/16 Overall doing well. Will recheck labs on 11/06 to monitor blood counts, electrolytes and renal function.
[2016-11-04] MEDS: SENNOSIDES 8.6 MG TABLET PO SCH (20:02)
[2016-11-04] MEDS: ENOXAPARIN 40 MG/0.4 ML INJECTION SQ SCH (20:12)
[2016-11-05] MEDS: MEXILETINE 150 MG CAPSULE PO SCH ×3 (03:55→17:22)
[2016-11-05] MEDS: OMEPRAZOLE 20 MG CAPSULE PO SCH (06:08)
[2016-11-05] MEDS: OMEGA-3 ACID ESTERS 1 GM CAPSULE PO SCH (08:36)
[2016-11-05] MEDS: FLECAINIDE 50 MG TABLET PO SCH ×2 (08:36→19:44)
[2016-11-05] MEDS: POLYETHYL GLYCOL 3350 17gm PACKET PO SCH ×2 (08:37→19:46)
[2016-11-05] MEDS: ACETAMINOPHEN 325 MG TABLET PO SCH ×4 (08:37→19:43)
[2016-11-05] MEDS: Oxycodone *IR* 5 MG TABLET PO PRN ×3 (08:38→19:43)
--- NOTE | 2016-11-05 08:48 | Pharmacy Consult ---
Pharmacy Consult-Warfarin - Laboratory Information 11/02/16 11/03/16 11/04/16 04:14 04:19 04:37 INR 1.33 H 1.52 H 1.75 H 11/05/16 04:34 INR 2.04 H COUMADIN CONSULT: 75 y.o. Female with history of chronic a. fib. Patient takes a home warfarin dose of 6 mg po daily. Warfarin dosing was stopped in preparation for 10/31/16 ortho. surgery and was restarted post op. Goal INR range= 2.0 to 3.0. Date INR Dose 10/31 1.07 6 mg 9/6 1.16 6 mg 9/7 1.33 6 mg 9/8 1.52 6 mg 9/9 1.75 6 mg 9/10 2.06 Plan 6 mg INR remains subtherapeutic and patient has Lovenox 40 mg SQ daily ordered. Will give Warfarin 6 mg po today. Pharmacy will continue to monitor and adjust as needed. Thanks for the Protocol, Meng Ghotra, Pharmacist.
[2016-11-05] MEDS: BENAZEPRIL 20 MG TABLET PO SCH ×2 (08:58→19:45)
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
[2016-11-05] MEDS ORDERED: LACTULOSE 20 GM/30 ML ORAL LIQUID PO ONE (10:47)
[2016-11-05] MEDS ORDERED: METOCLOPRAMIDE 10mg/2ml INJECTION IVP PRN (10:49)
[2016-11-05] MEDS: SALINE FLUSH 10ml SYRINGE IVF PRN (11:46)
[2016-11-05] MEDS ORDERED: WARFARIN 6 MG TABLET PO SCH (12:00)
[2016-11-05] MEDS ORDERED: LACTULOSE 20 GM/30 ML ORAL LIQUID PO PRN (16:28)
[2016-11-05] MEDS: SENNOSIDES 8.6 MG TABLET PO SCH (19:44)
[2016-11-05] MEDS: ENOXAPARIN 40 MG/0.4 ML INJECTION SQ SCH (19:45)
[2016-11-06] MEDS: MEXILETINE 150 MG CAPSULE PO SCH ×3 (00:48→17:25)
[2016-11-06] MEDS: BENAZEPRIL 20 MG TABLET PO SCH ×3 (02:19→20:49)
[2016-11-06] MEDS: POLYETHYL GLYCOL 3350 17gm PACKET PO SCH ×3 (02:19→20:49)
[2016-11-06] MEDS: SENNOSIDES 8.6 MG TABLET PO SCH ×3 (02:19→20:50)
[2016-11-06] MEDS: ENOXAPARIN 40 MG/0.4 ML INJECTION SQ SCH (02:19)
[2016-11-06] MEDS: FLECAINIDE 50 MG TABLET PO SCH ×3 (02:20→20:50)
[2016-11-06] MEDS: ACETAMINOPHEN 325 MG TABLET PO SCH ×5 (02:20→20:50)
[2016-11-06] MEDS: OMEPRAZOLE 20 MG CAPSULE PO SCH (05:58)
[2016-11-06] MEDS: Oxycodone *IR* 5 MG TABLET PO PRN ×4 (08:12→18:46)
[2016-11-06] MEDS: FUROSEMIDE 20 MG TABLET PO SCH (08:13)
[2016-11-06] MEDS: OMEGA-3 ACID ESTERS 1 GM CAPSULE PO SCH (08:14)
--- NOTE | 2016-11-06 09:35 | Pharmacy Consult ---
Pharmacy Consult-Warfarin - Laboratory Information 11/02/16 11/03/16 11/04/16 04:14 04:19 04:37 INR 1.33 H 1.52 H 1.75 H 11/05/16 11/06/16 04:34 04:52 INR 2.04 H 2.25 H - Consult Information We will give warfarin 5mg po today. Thanks
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
--- NOTE | 2016-11-06 10:29 | Progress Note ---
Subjective: Verena is seen today in follow up for her recent total right knee arthroplasty. She is seen while sitting in her recliner with physical therapy present. She states that she feels like she is doing better, getting stronger and that therapy is going well. She has been requesting more walks each day and is able to walk to the gift shop and back, which she is pleased with. She continues to have some right knee pain which she states is improved, currently 5 /10. She continues to complain of diffuse lateral neck pain but appears to have more mobility today. She states that she was able to shower today for the first time since admission and that the warm water helped her neck. Yesterday she complained of feeling generally weak and tired and was noted to have some lower blood pressures that she is used to. She was given NS 500cc and reports that she is feeling better today. She denies any fevers, chills, chest pain, shortness of breath, abdominal pain, nausea, vomiting or dysuria. She admits that her appetite comes and goes and her bowels are moving. Labs today were stable with slight improvement in her anemia with hemoglobin at 10.2. INR therapeutic at 2.25. She does have a history of right lower extremity DVT. Objective Vital signs: Temperature 98.1 F 11/06/16 08:00 Pulse Rate 69 11/06/16 08:00 Respiratory Rate 16 11/06/16 08:00 Blood Pressure 140/80 H 11/06/16 08:11 Pulse Oximetry 93 11/06/16 08:00 Height/Weight/BMI: Height 5 ft 8 in Weight 209 lb 10.554 oz Body Mass Index 32.9 - Constitutional Present: no acute distress, well nourished, well developed, cooperative - Routine HEENT Exam Head: Present: normocephalic, atraumatic Eye: Present: PERRL. Absent: conjunctival icterus ENT: Present: mucous membranes moist - Routine Respiratory Exam Present: CTA bilaterally. Absent: rhonchi, stridor, wheezes, crackles - Routine Cardiovascular Exam Present: RRR, S1, S2 - Routine Abdominal Exam Present: soft, normoactive bowel sounds, non distended, non tender - Routine Extremities Exam Present: edema (3+ right lower extremity; 1-2+ left lower extremity.) Comments: bandage to right knee is clean, dry and intact. Increased swelling to right leg as compared to left with increased ecchymosis and varicose veins; no calf tenderness; - Elvia's sign. - Routine Back/Spine/Pelvis Exam Back/Spine: Present: full ROM, pain with flexion (neck - improved.). Absent: erythema, warmth - Routine Musculoskeletal Exam Musculoskeletal: Present: moving extremities well, limited range of motion ( right knee) - Routine Skin Exam Present: intact, dry, warm. Absent: erythema, jaundice Comments: afebrile; increased swelling and ecchymosis to right lower extremity. - Routine Neurological Exam Present: alert, oriented X3, moving all extremities, hearing grossly intact, normal speech. Absent: facial asymmetry - Routine Lymphatic Exam Lymphatic: Present: lymphedema - Routine Psychiatric Exam Present: normal affect, cooperative Results - Labs CBC & Chem 7: 11/06/16 04:52 11/06/16 04:52 Assessment and Plan (1) Status post total knee replacement, right Current visit: Yes Status: Acute (2) ERICH (obstructive sleep apnea) Current visit: Yes Status: Acute (3) A-fib Current visit: Yes Status: Chronic DVT Prophylaxis: Lovenox, Coumadin GI Prophylaxis: other (Prilosec) Resuscitation Status: Full Code Assessment and Plan: ASSESSMENT Status post total right knee arthroplasty - Dr. Salamanca (10/31/16). Anemia, post-op, acute. Hypertension, chronic. Chronic Anticoagulation on Coumadin. History of atrial fibrillation, chronic. GERD, chronic. History of DVT right lower extremity, resolved. Obstructive sleep apnea, chronic. Gout, chronic. Osteoarthritis, chronic. Chronic constipation. PLAN Overall, Verena is doing well and is pleased with her increased strength and therapy participation. She reports being able to walk to the gift shop and back. Will continue therapies and pain control per Dr. Barrientos. She continues to require narcotic pain control but states that her overall pain is improving, currently 5/10. In light of her chronic constipation and narcotic use, her constipation has worsened. She was able to have a BM with aggressive bowel motivation. Continue with Senokot BID, lactulose and other stool softeners. Right lower extremity has 3+ edema with ecchymosis and varicose veins noted as compared to left lower extremity with 1-2+ edema. History of DVT in right lower extremity. INR therapeutic at 2.25 with pharmacy to manage. She denies any calf pain and Elvia's sign is negative. Continue to monitor closely. Will hold off on US at this time. Lovenox discontinued today in light of therapeutic INR. Hemoglobin trending up. Monitor periodically throughout admission. Team meeting on 11/07; anticipate discharge in near future. - Time spent with patient 25 - 35 minutes Sepsis Assessment - Evaluation Sepsis screening result: No Definite Risk Hospital Course Summary Disclaimer: The visit summary below is not to be considered part of the above Progress Note. Hospital Course: Status post total right knee arthroplasty - Dr. Salamanca (10/31/16) Hypertension Chronic Anticoagulation History of atrial fibrillation History of DVT Obstructive sleep apnea Gout Osteoarthritis Chronic constipation 11/02/16 hospitalist consult Agree with placement to IRU for intensive individualized program to improve her functional abilities/balance, etc Pharmacy will manage patient's anticoagulation. Will follow gout symptoms. Will DC the colchicine as she is past her acute flare and to reduce polypharmacy. Her uric acid level is elevated. Would recommend she follow-up with her PCP on an outpatient basis to discuss pros and cons of initiation of antihyperuricemic therapy depending on how frequently she has flares. Encouraged patient to follow-up with her PCP to discuss CPAP for her obstructive sleep apnea. Highly encourage her to comply with this. Continue to work on bowel motivation Pain control per Dr. Barrientos Appreciate the consult. 11/03/16 Continue therapy and pain control per Dr. Barrientos for improvement in functional ability and strength. Patient complains of nausea following eating small amounts. History of constipation. Continue bowel motivation with Dulcolax suppository PRN as well as Senokot and colace. Will obtain KUB now for further evaluation of nausea and constipation. Initiate Prilosec for possible GERD in light of symptoms of hiccups and fullness. Zofran as needed for nausea/vomiting. Hemoglobin stable following minor blood loss anemia with hemoglobin dropping from 14.5 preoperatively to current value of 10.7. Continue to monitor hemoglobin closely and monitor stools closely for signs of bleeding in light of anticoagulation with Coumadin. Continue Coumadin for anticoagulation with pharmacy to manage. Current INR 1.52. Continue bridge therapy with Lovenox for DVT prophylaxis until INR is therapeutic. Vital signs well controlled. Monitor blood pressures closely. Continue Lotensin, Lasix, HCTZ metoprolol for blood pressure as well as flecainide and verapamil for chronic a-fib. Currently sinus rhythm. Encourage incentive spirometry for pulmonary toileting and monitor daily weight for signs of fluid overload. Will recheck labs on 11/06 to monitor blood counts, electrolytes and renal function. 11/05/16 Patient had 2 blood pressure readings this morning that have been lower than previously, 104/56 and 106/58. We held her hydrochlorothiazide and benazepril this morning. Lab work shows normocytic anemia with a drop in hemoglobin to 9.9. Chemistries overall are stable. However, with her symptoms of lightheadedness, fatigue, and borderline blood pressures will give normal saline fluid bolus of 500 mL's. Repeat blood work tomorrow morning. Severe constipation: Abdomen exam is benign. Will give Lactulose x1. Continue SennaLax and MiraLAX, both BID. Dulcolax suppository PRN. Reglan Q6h PRN IV for nausea and bowel motility. She may be a candidate for Movantik. 11/06/16 Overall, Verena is doing well and is pleased with her increased strength and therapy participation. She reports being able to walk to the gift shop and back. Will continue therapies and pain control per Dr. Barrientos. She continues to require narcotic pain control but states that her overall pain is improving, currently 5/10. In light of her chronic constipation and narcotic use, her constipation has worsened. She was able to have a BM with aggressive bowel motivation. Continue with Senokot BID, lactulose and other stool softeners. Right lower extremity has 3+ edema with ecchymosis and varicose veins noted as compared to left lower extremity with 1-2+ edema. History of DVT in right lower extremity. INR therapeutic at 2.25 with pharmacy to manage. She denies any calf pain and Elvia's sign is negative. Continue to monitor closely. Will hold off on US at this time. Lovenox discontinued today in light of therapeutic INR. Hemoglobin trending up. Monitor periodically throughout admission. Team meeting on 11/07; anticipate discharge in near future.
[2016-11-06] MEDS: SALINE FLUSH 10ml SYRINGE IVF PRN ×3 (11:42→20:53)
[2016-11-06] MEDS ORDERED: WARFARIN 5 MG TABLET PO SCH (12:00)
[2016-11-06 15:15] VITALS: BMI 32.3
[2016-11-07] MEDS: MEXILETINE 150 MG CAPSULE PO SCH ×3 (01:30→17:33)
[2016-11-07] MEDS: Oxycodone *IR* 5 MG TABLET PO PRN ×5 (03:23→21:51)
[2016-11-07] MEDS: OMEPRAZOLE 20 MG CAPSULE PO SCH (06:14)
--- NOTE | 2016-11-07 08:03 | Pharmacy Consult ---
Pharmacy Consult-Warfarin - Laboratory Information 11/02/16 11/03/16 11/04/16 04:14 04:19 04:37 INR 1.33 H 1.52 H 1.75 H 11/05/16 11/06/16 11/07/16 04:34 04:52 04:34 INR 2.04 H 2[address] is 75 yo F admitted to IRU for OT / PT to ADL, post Rt TKR on 10/31. Hx of chronic A. Fib. Reported on home dose of Warfarin 6mg po daily. Reported previous DVT as well. Pt high risk for thrombotic episode. Warfarin therapy was continued at 6mg daily. Yesterday received 5mg dose Will repeat the 5mg dose again today. Noted drug - drug interaction with Omeprazole 20mg po daily, which can increase INR slightly. Will continue to monitor. Thank you
[2016-11-07] MEDS: ACETAMINOPHEN 325 MG TABLET PO SCH ×4 (08:56→21:54)
[2016-11-07] MEDS: BENAZEPRIL 20 MG TABLET PO SCH ×2 (08:57→21:56)
[2016-11-07] MEDS: FLECAINIDE 50 MG TABLET PO SCH ×2 (08:57→21:55)
[2016-11-07] MEDS: SENNOSIDES 8.6 MG TABLET PO SCH ×2 (08:58→21:56)
[2016-11-07] MEDS: POLYETHYL GLYCOL 3350 17gm PACKET PO SCH ×2 (08:58→21:55)
[2016-11-07] MEDS: OMEGA-3 ACID ESTERS 1 GM CAPSULE PO SCH (08:58)
--- NOTE | 2016-11-07 10:38 | IRU Progress Note ---
- Subjective/Serverity of Illness Verena is improving daily. She is standby assist to supervision level for many activities. She is noticing more bruising in the right lower extremity. She has been on Lovenox and warfarin. Lovenox has now been discontinued by the hospitalist. Her INR is therapeutic. No evidence of bleeding otherwise and her hemoglobin is improving. She does have some nausea for breakfast this morning. However yesterday she did well. Her headache is improved as well. Team meeting yesterday and we will discuss placement but she appears to be improving and nearly ready to go home. Exam Vital Signs: Temperature 98.2 F 11/07/16 07:26 Pulse Rate 70 11/07/16 07:26 Respiratory Rate 16 11/07/16 07:26 Blood Pressure 127/67 11/07/16 07:26 Pulse Oximetry 94 11/07/16 07:26 Height/Weight/BMI: Height 1.73 m Weight 96.5 kg Body Mass Index 32.3 Comments: The patient is awake, alert and oriented and in no acute distress. Pupils are equal. The neck is supple. Chest: Clear to auscultation bilaterally. Cor: RR with no gallop, click nor murmur. Has a history of intermittent atrial fibrillation. She sounds as though she is in a regular rhythm at present. Abd: soft with normo-active bowel sounds. There are no masses, no tenderness and no guarding. Extremities: Significant edema noted of the right lower extremity. Increasing bruising as well. Lovenox has been discontinued. Remains on warfarin. Results IRU - Labs Labs: I reviewed recent lab including INR and hemoglobin. Sepsis Assessment - Evaluation Sepsis screening result: No Definite Risk IRU A/P (1) Primary osteoarthritis of right knee Current visit: No Status: Chronic (2) Status post total knee replacement, right Current visit: Yes Status: Acute Patient is improving with therapies and is standby assistance to supervision level for many activities. The right leg is more swollen and ecchymotic although has been on Lovenox and warfarin. Her INR is therapeutic and not excessive. (3) A-fib Qualifiers: Atrial fibrillation type: chronic Qualified Code(s): I48.2 - Chronic atrial fibrillation Current visit: Yes Status: Chronic She sounds as though she is in a sinus mechanism at present. She is on therapeutic dose of warfarin. States that her dyspnea is improved. No chest pain. (4) HTN (hypertension) Qualifiers: Hypertension type: essential hypertension Qualified Code(s): I10 - Essential (primary) hypertension Current visit: No Status: Chronic (5) Acute gout Qualifiers: Gout site: foot Gout etiology: idiopathic Current visit: Yes Status: Resolved (6) Constipation by delayed colonic transit Current visit: Yes Status: Acute (7) Nausea Current visit: Yes Status: Acute Continues to struggle with chronic nausea. She relates it to a feeling like she needs to belch and then things would be better. However denies actual pain. No vomiting. Overall this is improving. (8) Muscle contraction headache Current visit: Yes Status: Acute Reports headaches are better. DVT Prophylaxis: Lovenox, Coumadin Resuscitation Status: Full Code - Course Hospital Course: Monroe Barrientos MD: 11/03/16 10:34 Patient has multiple medical problems that we are monitoring including atrial fibrillation with use of warfarin, muscle contraction headache, nausea and possible reflux, gout and constipation. She is progressing with therapy. Walking over 100 feet with contact-guard assist. Requires maximal assistance for most transfers however. 11/06/16 09:58 I reviewed the therapy notes. She is improving with regard to transfers and ambulation. She is walking over 900 feet with a walker. Lower extremity dressing is improved. Headaches and nausea continued to be an issue along with constipation. 11/07/16 10:45 Right lower extremity ecchymosis noted. Lovenox discontinued. Remains on warfarin for atrial fib and prior DVT. Patient is improving with therapies. - Interventions to Obtain Goals PT Treatment Plan: Balance/Proprioception, Functional Activities, Gait Training , Patient/Family Education, Therapeutic Exercise OT Treatment Plan: ADL (Basic Care), Balance Training, IADL, Pt./Family Education, Ther. Exercise for ADL Goals Progress/Modifications: We will review her progress is and interdisciplinary team today and make further comments.
[2016-11-07] MEDS ORDERED: WARFARIN 5 MG TABLET PO SCH (12:00)
--- NOTE | 2016-11-07 14:03 | IRU Team Meeting ---
IRU Team Meeting - Nursing Vital Signs: Vital Signs - 24 hr 11/06/16 16:00 11/06/16 21:38 11/07/16 07:26 Temperature 97.6 F 98.3 F 98.2 F Pulse Rate 70 64 70 Respiratory Rate 16 18 16 Blood Pressure 122/63 118/57 127/67 Pulse Oximetry 100 97 94 Current Medications: Acetaminophen (Tylenol) 650 mg PO QID [facility] Last Admin: 11/07/16 13:11 Dose: 650 mg Benazepril HCl (Lotensin) 20 mg PO BID [facility] Last Admin: 11/07/16 08:57 Dose: 20 mg Bisacodyl (Dulcolax) 10 mg RECTALLY DAILY PRN PRN Reason: Constipation Diphenhydramine HCl (Benadryl) 25 mg PO Q6H PRN PRN Reason: Itching Flecainide Acetate (Tambocor) 50 mg PO BID [facility] Last Admin: 11/07/16 08:57 Dose: 50 mg Furosemide (Lasix) 20 mg PO MoFr@0900 [facility] Last Admin: 11/06/16 08:13 Dose: 20 mg Hydrochlorothiazide (Hydrodiuril) 25 mg PO WB [facility] Last Admin: 11/05/16 08:58 Dose: Not Given Lactulose (Lactulose) 20 gm PO Q4H PRN PRN Reason: Constipation Lorazepam (Ativan) 1 mg PO HS PRN PRN Reason: Sleep Metoclopramide HCl (Reglan) 10 mg IVP Q6H PRN Last Admin: 11/05/16 11:51 Dose: 10 mg Metoprolol Tartrate (Lopressor) 25 mg PO BIDWM [facility] Last Admin: 11/07/16 08:57 Dose: 25 mg Mexiletine HCl (Mexitil) 150 mg PO Q8HR [facility] Last Admin: 11/07/16 08:57 Dose: 150 mg Nonzd-1-Smtg Ethyl Esters (Lovaza) 1 gm PO DAILY [facility] Last Admin: 11/07/16 08:58 Dose: 1 gm Omeprazole (Prilosec) 20 mg PO ACB [facility] Last Admin: 11/07/16 06:14 Dose: 20 mg Ondansetron HCl (Zofran Po) 4 mg PO Q4H PRN PRN Reason: Nausea &/or vomiting Last Admin: 09/08/17 08:40 Dose: 4 mg Oxycodone HCl (Roxicodone *Ir*) 5 - 15 mg PO Q3H PRN PRN Reason: Breakthrough pain Last Admin: 11/07/16 07:45 Dose: 15 mg Polyethylene Glycol (Miralax) 17 gm PO BID [facility] Last Admin: 11/07/16 08:58 Dose: Not Given Senna (Senna Lax) 17.2 mg PO DAILY PRN PRN Reason: Constipation Senna (Senna Lax) 17.2 mg PO BID [facility] Last Admin: 11/07/16 08:58 Dose: Not Given Sodium Chloride (Iv Flush) 10 - 80 ml IVF PRN PRN PRN Reason: Flushing Last Admin: 11/06/16 20:53 Dose: 10 ml Sodium Phosphate (Fleet Enema) 1 enema AR DAILY PRN PRN Reason: Constipation Last Admin: 11/02/16 17:39 Dose: 1 enema Verapamil HCl (Calan) 120 mg PO BID [facility] Last Admin: 11/07/16 08:58 Dose: 120 mg Warfarin Sodium (Coumadin Protocol) 0 NOTE [facility] Comments: I certify that I personally led the interdisciplinary team meeting and agree with comments, barriers and goals indicated. Team meeting was held in the patient's room with the patient and the following family members present: Mrs. Black was admitted after right total knee replacement with a several day history of acute gouty arthritis involving the opposite lower extremity. She has intermittent atrial fibrillation and is on warfarin. Appetite was initially decreased. She was eating less than 50%. This is improved. She is receiving supplements of mighty shakes. There is some edema of the right lower extremity along with increased bruising. She is on warfarin in this regard but the INR is therapeutic. - Physical Therapy Comments: She has improved with physical therapy. She is walking 1000 feet. She is improving with car transfers and is starting to work with stairs. - Occupational Therapy Lower Body Dressing Comment: She has improved with occupational therapy. She is using a traffic administrator and a sock aid. She will need a shower chair at home. Continue to work with patient. - Care Plan Anticipated Length of Stay: 3 Anticipated DC Destination: Home, Self Care, Home Health Service Interventions/Goals: Barriers to dismissal: Needs to work on stairs. Nausea, pain Goals: 1. Work on stairs for 2 steps with one handrail at supervision level II. IADLs at modified independent functioning (cooking)
[2016-11-07] MEDS: SALINE FLUSH 10ml SYRINGE IVF PRN (17:35)
[2016-11-08] MEDS: Oxycodone *IR* 5 MG TABLET PO PRN ×5 (02:07→22:35)
[2016-11-08] MEDS: MEXILETINE 150 MG CAPSULE PO SCH ×3 (02:08→17:45)
[2016-11-08] MEDS: OMEPRAZOLE 20 MG CAPSULE PO SCH (06:43)
--- NOTE | 2016-11-08 08:07 | Pharmacy Consult ---
Pharmacy Consult-Warfarin - Laboratory Information 11/02/16 11/03/16 11/04/16 04:14 04:19 04:37 INR 1.33 H 1.52 H 1.75 H 11/05/16 11/06/16 11/07/16 04:34 04:52 04:34 INR 2.04 H 2.25 H 2.47 H 11/08/16 06:46 INR 2.70 H COUMADIN CONSULT: 75 y.o. Female with history of chronic a. fib. Patient takes a home warfarin dose of 6 mg po daily. Warfarin dosing was stopped in preparation for 10/31/16 ortho. surgery and was restarted post op. Goal INR range= 2.0 to 3.0. Date INR Dose 10/31 1.07 6 mg 11/01 1.16 6 mg 11/02 1.33 6 mg 11/03 1.52 6 mg 11/04 1.75 6 mg 11/05 2.06 6 mg 11/06 2.25 5 mg 11/07 2.47 5 mg 11/08 2.70 4 mg INR is therapeutic and has increased dramatically with 5 mg dose. I will change to a 4 mg dose today. Pharmacy will continue to monitor and adjust as needed. Thanks for the Protocol, Meng Ghotra, Pharmacist.
[2016-11-08] MEDS: ACETAMINOPHEN 325 MG TABLET PO SCH ×4 (08:45→20:26)
[2016-11-08] MEDS: FLECAINIDE 50 MG TABLET PO SCH ×2 (08:46→20:27)
[2016-11-08] MEDS: OMEGA-3 ACID ESTERS 1 GM CAPSULE PO SCH (08:46)
[2016-11-08] MEDS: SENNOSIDES 8.6 MG TABLET PO SCH ×2 (08:46→20:27)
[2016-11-08] MEDS: POLYETHYL GLYCOL 3350 17gm PACKET PO SCH ×2 (08:47→20:24)
[2016-11-08] MEDS: BENAZEPRIL 20 MG TABLET PO SCH ×2 (08:53→20:27)
--- NOTE | 2016-11-08 11:08 | IRU Progress Note ---
- Subjective/Serverity of Illness Verena was evaluated in her room today. Unfortunately she had a bad night. Reports severe discomfort on the bottom of her right heel. Careful palpation and visual inspection of this area today shows no abnormalities. No evidence of decubitus changes, ischemia etc. Exam of the right foot continues to demonstrate some puffiness. Pulses are present but diminished. Secondly, she continues to struggle with nausea. Temporally speaking they do not appear to be related to the timing of pain medication. As I can determine that is the only new medication that she is on. She wonders about the Mexitil and I will check with Dr. José Antonio rodriguez in this regard as to whether she needs to be on that at this time. Has apparently been on that at least since spring of this year according to his office note. I have placed a call to his office this morning in this regard. Otherwise, she continues to progress with therapy. Working on stairs. Update on medical conditions as follows: 1. Acute gout: acute attack appears to have resolved. The right heel pain ( opposite side to where her previous gouty attack was located) may or may not be related to gout. I tend to doubt it as it is not warm nor red nor tender this morning. I discussed with her putting a small rolled up towel at her ankles to suspend the heel above the bed. 2. Hx of DVT diagnosed about a year ago. Patient remains on warfarin with pharmacy monitoring and dosing. INR remains therapeutic. She is off Lovenox. There is quite a bit of bruising in the right lower extremity. 3. Dyspnea: This is chronic. Lung exam remains neg. she states that her dyspnea has actually been improved since she has been here on the rehabilitation unit. 4. Severe constipation: Continues to struggle with this. She is on several medications in this regard. 5. Recent total knee replacement: Amount of pain appears to be as expected. There is quite a bit of ecchymoses. She is on warfarin. 6. Nausea: I discussed her nausea with her in detail this morning. She did not have this problem before being admitted to the hospital. I have reviewed all of her medications. I have a call placed to Dr. Lema regarding the Mexitil and flecainide. The only medication I can see that could be a factor besides these would be the pain medication. However she states that it is not temporally related to the use of oxycodone. 7. Headaches: Headaches appear to be improved. 8. Hypotension: Blood pressures are reviewed and she has had no further episodes of hypotension. Lowest recorded systolic pressure is 102. 9. Acute blood loss anemia. Hemoglobin improved to 10.2. Exam Vital Signs: Temperature 98.2 F 11/08/16 08:00 Pulse Rate 76 11/08/16 08:00 Respiratory Rate 16 11/08/16 08:00 Blood Pressure 104/69 11/08/16 08:00 Pulse Oximetry 98 11/08/16 08:00 Height/Weight/BMI: Height 1.73 m Weight 97.6 kg Body Mass Index 32.3 Comments: The patient is awake, alert and oriented and in no acute distress except for sensation of nausea and queasiness. No emesis. Pupils are equal. The neck is supple. Chest: Clear to auscultation bilaterally. Cor: RR with no gallop, click nor murmur. She does not sound as though she is in atrial fibrillation today. Abd: soft with normo-active bowel sounds. There are no masses, no tenderness and no guarding. Extremities: There is presence of bilateral edema right worse than left related to the recent surgery. Right lower extremity does reveal a lot of ecchymoses related to anticoagulant usage. Pulses are adequate in the feet. Careful exam of the right heel feels to reveal significant inflammation, tenderness nor any evidence of decubitus/ischemic changes. The patient's wound involving the right knee is clean and dry and without inflammation. Sepsis Assessment - Evaluation Sepsis screening result: No Definite Risk IRU A/P (1) Primary osteoarthritis of right knee Current visit: No Status: Chronic Continues to progress with therapies and is improving. (2) Status post total knee replacement, right Current visit: Yes Status: Acute Wound appears to be unremarkable. She is improving with both OT and PT. There are some ecchymoses down the right leg related to anticoagulant use. (3) A-fib Qualifiers: Atrial fibrillation type: paroxysmal Qualified Code(s): I48.0 - Paroxysmal atrial fibrillation Current visit: Yes Status: Chronic Based on clinical exam she appears to have more paroxysmal atrial fibrillation than chronic. Has apparently been in a sinus mechanism or at least is in a regular rhythm upon palpation and auscultation. Symptomatically denies shortness of breath, chest pain or palpitations. Remains on warfarin. Also remains on flecainide for prevention of PAF. I will visit with Dr. Lema regarding her mexiletine. (4) HTN (hypertension) Qualifiers: Hypertension type: essential hypertension Qualified Code(s): I10 - Essential (primary) hypertension Current visit: No Status: Chronic Blood pressures are stable. Lowest recorded is 102. (5) Acute gout Qualifiers: Gout site: foot Gout etiology: idiopathic Current visit: Yes Status: Resolved (6) Constipation by delayed colonic transit Current visit: Yes Status: Acute (7) Nausea Current visit: Yes Status: Acute This continues to be very distressing for the patient. I reviewed medications as noted above. I have visiting with cardiology regarding medications. Other than the oxycodone I am not certain there is any other medication that would be the culprit. (8) Muscle contraction headache Current visit: Yes Status: Acute DVT Prophylaxis: Lovenox, Coumadin Resuscitation Status: Full Code - Course Hospital Course: Monroe Barrientos MD: 11/03/16 10:34 Patient has multiple medical problems that we are monitoring including atrial fibrillation with use of warfarin, muscle contraction headache, nausea and possible reflux, gout and constipation. She is progressing with therapy. Walking over 100 feet with contact-guard assist. Requires maximal assistance for most transfers however. 11/06/16 09:58 I reviewed the therapy notes. She is improving with regard to transfers and ambulation. She is walking over 900 feet with a walker. Lower extremity dressing is improved. Headaches and nausea continued to be an issue along with constipation. 11/07/16 10:45 Right lower extremity ecchymosis noted. Lovenox discontinued. Remains on warfarin for atrial fib and prior DVT. Patient is improving with therapies. 11/08/16 11:12 Continues to progress with therapy. Nausea continues to be an issue. Working on stairs. Have a call into cardiology regarding the use of mexiletine. - Interventions to Obtain Goals PT Treatment Plan: Balance/Proprioception, Functional Activities, Gait Training , Patient/Family Education, Therapeutic Exercise OT Treatment Plan: ADL (Basic Care), Balance Training, IADL, Pt./Family Education, Ther. Exercise for ADL Goals Progress/Modifications: Time spent with patient and on floor reviewing data and documentin minutes Barriers to dismissal: Stairs, nausea Medical decision-making: The main issue at this point is her nausea. I have investigated her medications and really find nothing that would be likely to be the culprit except for her oxycodone. However she does not relate the nausea temporally to the taking of medication. She says that she feels like she needs to belch and if she does that she will feel better. However denies any actual pain either in the chest or epigastrium. I tend to think that her nausea is likely related to medication. Would wonder about delayed gastric emptying. She has received metoclopramide as needed.
[2016-11-08] MEDS ORDERED: WARFARIN 4 MG TABLET PO SCH (12:00)
[2016-11-09] MEDS: MEXILETINE 150 MG CAPSULE PO SCH ×3 (01:50→17:47)
[2016-11-09] MEDS: OMEPRAZOLE 20 MG CAPSULE PO SCH ×2 (05:05→06:43)
[2016-11-09] MEDS: Oxycodone *IR* 5 MG TABLET PO PRN ×3 (06:42→19:45)
--- NOTE | 2016-11-09 08:02 | Pharmacy Consult ---
Pharmacy Consult-Warfarin - Laboratory Information 11/02/16 11/03/16 11/04/16 04:14 04:19 04:37 INR 1.33 H 1.52 H 1.75 H 11/05/16 11/06/16 11/07/16 04:34 04:52 04:34 INR 2.04 H 2.25 H 2.47 H 11/08/16 11/09/16 06:46 05:04 INR 2.70 H 2.78 H COUMADIN CONSULT: 75 y.o. Female with history of chronic a. fib. Patient takes a home warfarin dose of 6 mg po daily. Warfarin dosing was stopped in preparation for 10/31/16 ortho. surgery and was restarted post op. Goal INR range= 2.0 to 3.0. Date INR Dose 10/31 1.07 6 mg 11/01 1.16 6 mg 11/02 1.33 6 mg 11/03 1.52 6 mg 11/04 1.75 6 mg 11/05 2.06 6 mg 11/06 2.25 5 mg 11/07 2.47 5 mg 11/08 2.70 4 mg 11/09 2.78 4 MG INR is therapeutic and has increased dramatically with 5 mg dose. I continue with the 4 mg dose today. Pharmacy will continue to monitor and adjust as needed. Thanks for the Protocol, Meng Ghotra, Pharmacist.
[2016-11-09] MEDS: BENAZEPRIL 20 MG TABLET PO SCH ×2 (08:37→21:16)
[2016-11-09] MEDS: SENNOSIDES 8.6 MG TABLET PO SCH ×2 (08:37→21:16)
[2016-11-09] MEDS: FLECAINIDE 50 MG TABLET PO SCH ×2 (08:37→21:16)
[2016-11-09] MEDS: OMEGA-3 ACID ESTERS 1 GM CAPSULE PO SCH (08:37)
[2016-11-09] MEDS: ACETAMINOPHEN 325 MG TABLET PO SCH ×4 (08:38→21:16)
[2016-11-09] MEDS: POLYETHYL GLYCOL 3350 17gm PACKET PO SCH ×2 (08:38→21:14)
[2016-11-09] MEDS ORDERED: WARFARIN 4 MG TABLET PO SCH (12:00)
--- NOTE | 2016-11-09 17:48 | Progress Note ---
Subjective: Verena is seen today in follow up this afternoon following working with PT. She reports she is worn out and having knee pain currently, requesting a pain pill. Overall, she feels that she is gaining strength and is hopeful for discharge in the near future. Reports appetite has improved and bowels are moving regularly. Objective Vital signs: Temperature 98.4 F 11/09/16 16:00 Pulse Rate 69 11/09/16 16:00 Respiratory Rate 16 11/09/16 16:00 Blood Pressure 141/72 H 11/09/16 16:00 Pulse Oximetry 99 11/09/16 16:00 Height/Weight/BMI: Height 1.73 m Weight 96.6 kg Body Mass Index 32.3 - Constitutional Present: well nourished, well developed - Routine HEENT Exam Eye: Present: EOMI ENT: Present: mucous membranes moist, dentition normal - Routine Respiratory Exam Present: CTA bilaterally. Absent: wheezes - Routine Cardiovascular Exam Present: RRR. Absent: murmur - Routine Abdominal Exam Present: soft, normoactive bowel sounds, non distended. Absent: tenderness - Routine Extremities Exam Present: edema, pulses intact, normal capillary refill, joint swelling (knee) Comments: Ecchymosis and swelling to right lower extremity secondary to recent surgery. - Routine Skin Exam Present: intact, dry, warm - Routine Neurological Exam Present: alert, oriented X3, CN II-XII intact - Routine Lymphatic Exam Lymphatic: Absent: adenopathy - Routine Psychiatric Exam Present: normal affect, cooperative Results - Labs CBC & Chem 7: 11/06/16 04:52 11/06/16 04:52 Assessment and Plan (1) ERICH (obstructive sleep apnea) Current visit: Yes Status: Acute (2) A-fib Current visit: Yes Status: Chronic (3) Status post total knee replacement, right Current visit: Yes Status: Acute Assessment and Plan: ASSESSMENT Status post total right knee arthroplasty - Dr. Salamanca (10/31/16). Anemia, post-op, acute. Hypertension, chronic. Chronic Anticoagulation on Coumadin. History of atrial fibrillation, chronic. GERD, chronic. History of DVT right lower extremity, resolved. Obstructive sleep apnea, chronic. Gout, chronic. Osteoarthritis, chronic. Chronic constipation. PLAN Continue to encourage work with PT and OT for postoperative strengthening. She is hopeful for discharge home in the next 1-2 days. Continue with bowel motivation including Senokot and stool softeners. INR remains therapeutic Sepsis Assessment - Evaluation Sepsis screening result: No Definite Risk Hospital Course Summary Disclaimer: The visit summary below is not to be considered part of the above Progress Note. Hospital Course: Status post total right knee arthroplasty - Dr. Salamanca (10/31/16) Hypertension Chronic Anticoagulation History of atrial fibrillation History of DVT Obstructive sleep apnea Gout Osteoarthritis Chronic constipation 11/02/16 hospitalist consult Agree with placement to IRU for intensive individualized program to improve her functional abilities/balance, etc Pharmacy will manage patient's anticoagulation. Will follow gout symptoms. Will DC the colchicine as she is past her acute flare and to reduce polypharmacy. Her uric acid level is elevated. Would recommend she follow-up with her PCP on an outpatient basis to discuss pros and cons of initiation of antihyperuricemic therapy depending on how frequently she has flares. Encouraged patient to follow-up with her PCP to discuss CPAP for her obstructive sleep apnea. Highly encourage her to comply with this. Continue to work on bowel motivation Pain control per Dr. Barrientos Appreciate the consult. 11/03/16 Continue therapy and pain control per Dr. Barrientos for improvement in functional ability and strength. Patient complains of nausea following eating small amounts. History of constipation. Continue bowel motivation with Dulcolax suppository PRN as well as Senokot and colace. Will obtain KUB now for further evaluation of nausea and constipation. Initiate Prilosec for possible GERD in light of symptoms of hiccups and fullness. Zofran as needed for nausea/vomiting. Hemoglobin stable following minor blood loss anemia with hemoglobin dropping from 14.5 preoperatively to current value of 10.7. Continue to monitor hemoglobin closely and monitor stools closely for signs of bleeding in light of anticoagulation with Coumadin. Continue Coumadin for anticoagulation with pharmacy to manage. Current INR 1.52. Continue bridge therapy with Lovenox for DVT prophylaxis until INR is therapeutic. Vital signs well controlled. Monitor blood pressures closely. Continue Lotensin, Lasix, HCTZ metoprolol for blood pressure as well as flecainide and verapamil for chronic a-fib. Currently sinus rhythm. Encourage incentive spirometry for pulmonary toileting and monitor daily weight for signs of fluid overload. Will recheck labs on 11/06 to monitor blood counts, electrolytes and renal function. 11/05/16 Patient had 2 blood pressure readings this morning that have been lower than previously, 104/56 and 106/58. We held her hydrochlorothiazide and benazepril this morning. Lab work shows normocytic anemia with a drop in hemoglobin to 9.9. Chemistries overall are stable. However, with her symptoms of lightheadedness, fatigue, and borderline blood pressures will give normal saline fluid bolus of 500 mL's. Repeat blood work tomorrow morning. Severe constipation: Abdomen exam is benign. Will give Lactulose x1. Continue SennaLax and MiraLAX, both BID. Dulcolax suppository PRN. Reglan Q6h PRN IV for nausea and bowel motility. She may be a candidate for Movantik. 11/06/16 Overall, Verena is doing well and is pleased with her increased strength and therapy participation. She reports being able to walk to the gift shop and back. Will continue therapies and pain control per Dr. Barrientos. She continues to require narcotic pain control but states that her overall pain is improving, currently 5/10. In light of her chronic constipation and narcotic use, her constipation has worsened. She was able to have a BM with aggressive bowel motivation. Continue with Senokot BID, lactulose and other stool softeners. Right lower extremity has 3+ edema with ecchymosis and varicose veins noted as compared to left lower extremity with 1-2+ edema. History of DVT in right lower extremity. INR therapeutic at 2.25 with pharmacy to manage. She denies any calf pain and Elvia's sign is negative. Continue to monitor closely. Will hold off on US at this time. Lovenox discontinued today in light of therapeutic INR. Hemoglobin trending up. Monitor periodically throughout admission. Team meeting on 11/07; anticipate discharge in near future.
[2016-11-10] MEDS: MEXILETINE 150 MG CAPSULE PO SCH ×2 (00:54→08:35)
[2016-11-10] MEDS: Oxycodone *IR* 5 MG TABLET PO PRN ×4 (01:30→13:18)
[2016-11-10] MEDS: OMEPRAZOLE 20 MG CAPSULE PO SCH ×2 (05:04→08:33)
--- NOTE | 2016-11-10 08:02 | Pharmacy Consult ---
Pharmacy Consult-Warfarin - Laboratory Information 11/02/16 11/03/16 11/04/16 04:14 04:19 04:37 INR 1.33 H 1.52 H 1.75 H 11/05/16 11/06/16 11/07/16 04:34 04:52 04:34 INR 2.04 H 2.25 H 2.47 H 11/08/16 11/09/16 11/10/16 06:46 05:04 05:14 INR 2.70 H 2.78 H 2.61 H - Consult Information Ordered warfarin 4mg po for noon today. Will continue to monitor. Thank you.
[2016-11-10] MEDS: ACETAMINOPHEN 325 MG TABLET PO SCH ×2 (08:33→12:30)
[2016-11-10] MEDS: FUROSEMIDE 20 MG TABLET PO SCH (08:34)
[2016-11-10] MEDS: OMEGA-3 ACID ESTERS 1 GM CAPSULE PO SCH (08:34)
[2016-11-10] MEDS: FLECAINIDE 50 MG TABLET PO SCH (08:35)
[2016-11-10] MEDS: SENNOSIDES 8.6 MG TABLET PO SCH (08:35)
[2016-11-10] MEDS: POLYETHYL GLYCOL 3350 17gm PACKET PO SCH (08:35)
[2016-11-10] MEDS: BENAZEPRIL 20 MG TABLET PO SCH (08:39)
[2016-11-10 09:39] VITALS: BP 144/88; PULSE 100; RESP 18; TEMP 97.9; O2SAT 98
--- NOTE | 2016-11-10 09:40 | Discharge Instructions ---
Discharge Plan - Med Rec/Dispo Referrals/Follow Up: Yasmany Salamanca MD [Physician] - (Dr. Mauricio Salamanca on 11/22/16 at 1:15 pm for Post-Op follow-up. [address] [place] [address]) Robin Lopez APRN [Family Provider] - (Robin Lopez APRN on 11/16/16 at 1:15 pm for Hosp. follow-up. [phone]. [facility] [address] [place] [address]) Additional Instructions: Have INR rechecked on 11/13/16. PCP to follow INR and adjust Coumadin dose, if needed. Resume home medications. Prescriptions: New Warfarin Sodium [Coumadin] 4 mg PO DAILY #30 tab Oxycodone *Ir* [Roxicodone *Ir*] 5 - 10 mg PO Q4H PRN #50 tablet PRN Reason: Severe Pain Calcium Carbonate [Calcium] 1 tab PO DAILY #30 tab Continue Metoprolol Tartrate 25 mg PO BIDWM #0 tab Benazepril HCl 20 mg PO BID #0 tab Multivitamin with Minerals [Hair, Skin and Nails] 1 tab PO DAILY #0 Verapamil HCl 120 mg PO BID #0 Mexiletine [Mexitil] 150 mg PO Q8HR 30 Days #90 cap Furosemide [Lasix] 20 mg PO 2XW Flecainide [Tambocor] 50 mg PO BID [place]-3/Dha/Epa/Fish Oil [Fish Oil 1,000 mg Softgel] 1,000 mg PO DAILY Sennosides 17.2 mg PO DAILY PRN PRN Reason: Constipation Sennosides 17.2 mg PO HS Polyethylene Glycol 3350 [Miralax] 1 packet PO DAILY hydroCHLOROthiazide [Hydrochlorothiazide] 25 mg PO WB #0 tab Cholecalciferol (Vitamin D3) [Vitamin D3] 1 cap PO DAILY #0 Acetaminophen [Tylenol] 650 mg PO QID Discontinued Warfarin Sodium [Warfarin Sodium] 5 mg PO DAILY Warfarin Sodium [Warfarin Sodium] 1 mg PO DAILY Colchicine [Colcrys] 1 tab PO BID #6 tab Oxycodone/APAP 5/325 [Percocet 5/325] 1 tab PO 3-4XDPRN #10 tab Nozin Nasal Swab 1 each BRITTNEY 0600,1400,2200 Milk of Magnesia [Mom] 30 ml PO O Enoxaparin [Lovenox] 40 mg SQ Q24H Bisacodyl Supp [Dulcolax] 1 supp MO DAILY PRN PRN Reason: Constipation DiphenhydrAMINE [Benadryl] 25 mg PO Q6H PRN PRN Reason: Itching Ativan 1 mg PO HS PRN PRN Reason: Sleep Oxycodone *Ir* [Roxicodone *Ir*] 5 - 15 mg PO Q3H PRN PRN Reason: Pain Docusate Sodium [Colace] 1 cap PO BID
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
[2016-11-10] MEDS ORDERED: FALL RISK - PHARMACY CONSULT MC PRN (09:59)
--- NOTE | 2016-11-10 10:55 | Discharge Instructions ---
Discharge Plan - Med Rec/Dispo Referrals/Follow Up: Robin Lopez APRN [Family Provider] - (Robin Lopez APRN on 11/16/16 at 1:15 pm for Hosp. follow-up. . [place] [address] [place] [id number]) Yasmany Salamanca MD [Physician] - (Dr. Mauricio Salamanca on 11/22/16 at 1:15 pm for Post-Op follow-up. [address] [place] [address]) Prescriptions: New Oxycodone *Ir* [Roxicodone *Ir*] 5 - 10 mg PO Q4H PRN #50 tablet PRN Reason: Severe Pain No Action Metoprolol Tartrate 25 mg PO BIDWM #0 tab Benazepril HCl 20 mg PO BID #0 tab Multivitamin with Minerals [Hair, Skin and Nails] 1 tab PO DAILY #0 Verapamil HCl 120 mg PO BID #0 Mexiletine [Mexitil] 150 mg PO Q8HR 30 Days #90 cap Furosemide [Lasix] 20 mg PO 2XW Flecainide [Tambocor] 50 mg PO BID Warfarin Sodium [Warfarin Sodium] 5 mg PO DAILY Warfarin Sodium [Warfarin Sodium] 1 mg PO DAILY [place]-3/Dha/Epa/Fish Oil [Fish Oil 1,000 mg Softgel] 1,000 mg PO DAILY Colchicine [Colcrys] 1 tab PO BID #6 tab Oxycodone/APAP 5/325 [Percocet 5/325] 1 tab PO 3-4XDPRN #10 tab Sennosides 17.2 mg PO DAILY PRN PRN Reason: Constipation Sennosides 17.2 mg PO HS Nozin Nasal Swab 1 each BRITTNEY 0600,1400,2200 Milk of Magnesia [Mom] 30 ml PO O Polyethylene Glycol 3350 [Miralax] 1 packet PO DAILY Enoxaparin [Lovenox] 40 mg SQ Q24H Bisacodyl Supp [Dulcolax] 1 supp SD DAILY PRN PRN Reason: Constipation DiphenhydrAMINE [Benadryl] 25 mg PO Q6H PRN PRN Reason: Itching Ativan 1 mg PO HS PRN PRN Reason: Sleep hydroCHLOROthiazide [Hydrochlorothiazide] 25 mg PO WB #0 tab Cholecalciferol (Vitamin D3) [Vitamin D3] 1 cap PO DAILY #0 Oxycodone *Ir* [Roxicodone *Ir*] 5 - 15 mg PO Q3H PRN PRN Reason: Pain Docusate Sodium [Colace] 1 cap PO BID Acetaminophen [Tylenol] 650 mg PO QID Discharge Instructions/Outpatient Orders: Final Provider Discharge Instructions Location: Determined By Patient - Disposition 01 Discharged Home, Self-Care
--- NOTE | 2016-11-10 11:34 | Discharge Instructions ---
Discharge Plan - Med Rec/Dispo Referrals/Follow Up: Robin Lopez APRN [Family Provider] - (Robin Lopez APRN on 11/16/16 at 1:15 pm for Hosp. follow-up. . [place] [id number] [place] [address]) Yasmany Salamanca MD [Physician] - (Dr. Mauricio Salamanca on 11/22/16 at 1:15 pm for Post-Op follow-up. [address] [place] [address]) Kev Instructions: Knee Replacement (GEN) Additional Instructions: Have INR rechecked on 11/13/16. PCP to follow INR and adjust Coumadin dose, if needed. Resume home medications. Prescriptions: New Warfarin Sodium [Coumadin] 4 mg PO DAILY #30 tab Oxycodone *Ir* [Roxicodone *Ir*] 5 - 10 mg PO Q4H PRN #50 tablet PRN Reason: Severe Pain Calcium Carbonate [Calcium] 1 tab PO DAILY #30 tab Continue Metoprolol Tartrate 25 mg PO BIDWM #0 tab Benazepril HCl 20 mg PO BID #0 tab Multivitamin with Minerals [Hair, Skin and Nails] 1 tab PO DAILY #0 Verapamil HCl 120 mg PO BID #0 Mexiletine [Mexitil] 150 mg PO Q8HR 30 Days #90 cap Furosemide [Lasix] 20 mg PO 2XW Flecainide [Tambocor] 50 mg PO BID [place]-3/Dha/Epa/Fish Oil [Fish Oil 1,000 mg Softgel] 1,000 mg PO DAILY Sennosides 17.2 mg PO DAILY PRN PRN Reason: Constipation Sennosides 17.2 mg PO HS Polyethylene Glycol 3350 [Miralax] 1 packet PO DAILY hydroCHLOROthiazide [Hydrochlorothiazide] 25 mg PO WB #0 tab Cholecalciferol (Vitamin D3) [Vitamin D3] 1 cap PO DAILY #0 Acetaminophen [Tylenol] 650 mg PO QID Discontinued Warfarin Sodium [Warfarin Sodium] 5 mg PO DAILY Warfarin Sodium [Warfarin Sodium] 1 mg PO DAILY Colchicine [Colcrys] 1 tab PO BID #6 tab Oxycodone/APAP 5/325 [Percocet 5/325] 1 tab PO 3-4XDPRN #10 tab Nozin Nasal Swab 1 each BRITTNEY 0600,1400,2200 Milk of Magnesia [Mom] 30 ml PO O Enoxaparin [Lovenox] 40 mg SQ Q24H Bisacodyl Supp [Dulcolax] 1 supp [place] DAILY PRN PRN Reason: Constipation DiphenhydrAMINE [Benadryl] 25 mg PO Q6H PRN PRN Reason: Itching Ativan 1 mg PO HS PRN PRN Reason: Sleep Oxycodone *Ir* [Roxicodone *Ir*] 5 - 15 mg PO Q3H PRN PRN Reason: Pain Docusate Sodium [Colace] 1 cap PO BID Discharge Instructions/Outpatient Orders: Final Provider Discharge Instructions Location: Determined By Patient - Disposition 01 Discharged Home, Self-Care
--- NOTE | 2016-11-10 11:51 | Discharge Summary ---
Discharge Information Date of admission: 11/01/16 16:29 Anticipated date of discharge: 11/10/16 Attending Physician: Monroe Barrientos MD Primary care physician: Robin Lopez APRN Consults: 11/01/16 17:53 Case Management Consult [CONS] Routine Reason For Exam: Discharge Planning Pharmacy Consult [CONS] Routine Pharmacy Consult: Coumadin/Warfarin Comment: Pt takes 6mg daily at home. Total Joint Outpatient Therapy [CONS] Routine Comment: change dressing in 2 weeks 11/01/16 18:01 Physician Consult [CONS] Routine Consulting Provider: Peggy Bustillos Reason For Exam: Medical management Ordering Provider has Notified Ortho Assistant: No - Discharge Diagnosis (1) Primary osteoarthritis of right knee Status: Chronic Discharge Diagnosis: Primary osteoarthritis of right knee, status post right total knee replacement. (2) Status post total knee replacement, right Status: Acute Discharge Diagnosis: Status post right total knee replacement. (3) A-fib Status: Chronic Discharge Diagnosis: Paroxysmal atrial fibrillation, currently in sinus mechanism. (4) HTN (hypertension) Status: Chronic Discharge Diagnosis: Benign essential hypertension (5) Acute gout Status: Resolved Discharge Diagnosis: Recent acute gout left foot, resolved (6) Constipation by delayed colonic transit Status: Acute Discharge Diagnosis: Constipation by delayed colonic transit (7) Nausea Status: Acute Discharge Diagnosis: Recurrent nausea of unclear etiology. (8) Muscle contraction headache Status: Acute Discharge Diagnosis: Muscle contraction headache likely secondary to cervical spine degenerative arthritis and muscle spasm. - Laboratory Labs: 11/06/16 04:52 11/06/16 04:52 History of Present Illness HPI: 11/10/16 11:50 Verena is a 75-year-old white female with progressive degenerative arthritis involving the right knee. She developed what appeared to be acute gouty arthritis involving the left foot on or about 10/27/2016. She was seen in the emergency department at [facility] and treated with colchicine. This improved. Her uric acid was around 8.6. She subsequently was admitted to the hospital and underwent right total knee replacement by Dr. Salamanca on 10/31/2016. She tolerated the procedure well. Has a history of paroxysmal atrial fibrillation and has been seen by Dr. Lema. Does not have significant coronary disease. She required acute inpatient rehabilitation because of the recent right total knee replacement along with her paroxysmal atrial fibrillation, chronic dyspnea with activity, need for adjustment of warfarin, nausea. 11/10/16 11:51 Hospital Course This is a general summary of the patient's hospital course. For more details refer to the complete medical record. Patient underwent right total knee replacement on acute care by Dr. Salamanca on 06/2016. She was evaluated and accepted into the acute inpatient rehabilitation unit. While here, she underwent intensive individualized occupational therapy and physical therapy. In addition she required 24 rehabilitation nursing because of her chronic dyspnea and risk for bleeding in view of the anticoagulation needed. She was on warfarin and Lovenox for a time until the INR improved. She did develop significant edema and ecchymosis involving the right lower extremity. However by the time of dismissal this had improved. From a therapy standpoint she noted the following gains: Occupational therapy: 1. Grooming: Improved from standby assistance to modified independent 2. Bathing: Improved from bag bath to shower 3. Upper extremity dressing: Improved from standby assistance to modified independent functioning 4. Lower extremity dressing improved from minimal assistance to modified independent functioning 5. Shower transfers improved from standby assistance to modified independent functioning. Physical therapy: 1. Transfers improved from standby assistance to modified independent 2. Ambulatory ability improved from 210 feet with standby assistance to over 1000 feet with modified independent functioning. We did struggle a bit with nausea while on the rehabilitation unit. We reviewed all of her medications and did not find a culprit. It is possible it is related to the pain medication although there was no temporal relationship to that. She was felt to be stable for transfer to her home with home health seeing her for long term, occupational therapy and skilled physical therapy. She will receive another INR on November 13. She will follow-up with Dr. Salamanca as scheduled as well as with her primary care for provider Robin Lopez APRN. Hospital course: Status post total right knee arthroplasty - Dr. Salamanca (10/31/16) Hypertension Chronic Anticoagulation History of atrial fibrillation History of DVT Obstructive sleep apnea Gout Osteoarthritis Chronic constipation 11/02/16 hospitalist consult Agree with placement to IRU for intensive individualized program to improve her functional abilities/balance, etc Pharmacy will manage patient's anticoagulation. Will follow gout symptoms. Will DC the colchicine as she is past her acute flare and to reduce polypharmacy. Her uric acid level is elevated. Would recommend she follow-up with her PCP on an outpatient basis to discuss pros and cons of initiation of antihyperuricemic therapy depending on how frequently she has flares. Encouraged patient to follow-up with her PCP to discuss CPAP for her obstructive sleep apnea. Highly encourage her to comply with this. Continue to work on bowel motivation Pain control per Dr. Barrientos Appreciate the consult. 11/03/16 Continue therapy and pain control per Dr. Barrientos for improvement in functional ability and strength. Patient complains of nausea following eating small amounts. History of constipation. Continue bowel motivation with Dulcolax suppository PRN as well as Senokot and colace. Will obtain KUB now for further evaluation of nausea and constipation. Initiate Prilosec for possible GERD in light of symptoms of hiccups and fullness. Zofran as needed for nausea/vomiting. Hemoglobin stable following minor blood loss anemia with hemoglobin dropping from 14.5 preoperatively to current value of 10.7. Continue to monitor hemoglobin closely and monitor stools closely for signs of bleeding in light of anticoagulation with Coumadin. Continue Coumadin for anticoagulation with pharmacy to manage. Current INR 1.52. Continue bridge therapy with Lovenox for DVT prophylaxis until INR is therapeutic. Vital signs well controlled. Monitor blood pressures closely. Continue Lotensin, Lasix, HCTZ metoprolol for blood pressure as well as flecainide and verapamil for chronic a-fib. Currently sinus rhythm. Encourage incentive spirometry for pulmonary toileting and monitor daily weight for signs of fluid overload. Will recheck labs on 11/06 to monitor blood counts, electrolytes and renal function. 11/05/16 Patient had 2 blood pressure readings this morning that have been lower than previously, 104/56 and 106/58. We held her hydrochlorothiazide and benazepril this morning. Lab work shows normocytic anemia with a drop in hemoglobin to 9.9. Chemistries overall are stable. However, with her symptoms of lightheadedness, fatigue, and borderline blood pressures will give normal saline fluid bolus of 500 mL's. Repeat blood work tomorrow morning. Severe constipation: Abdomen exam is benign. Will give Lactulose x1. Continue SennaLax and MiraLAX, both BID. Dulcolax suppository PRN. Reglan Q6h PRN IV for nausea and bowel motility. She may be a candidate for Movantik. 11/06/16 Overall, Verena is doing well and is pleased with her increased strength and therapy participation. She reports being able to walk to the gift shop and back. Will continue therapies and pain control per Dr. Barrientos. She continues to require narcotic pain control but states that her overall pain is improving, currently 5/10. In light of her chronic constipation and narcotic use, her constipation has worsened. She was able to have a BM with aggressive bowel motivation. Continue with Senokot BID, lactulose and other stool softeners. Right lower extremity has 3+ edema with ecchymosis and varicose veins noted as compared to left lower extremity with 1-2+ edema. History of DVT in right lower extremity. INR therapeutic at 2.25 with pharmacy to manage. She denies any calf pain and Elvia's sign is negative. Continue to monitor closely. Will hold off on US at this time. Lovenox discontinued today in light of therapeutic INR. Hemoglobin trending up. Monitor periodically throughout admission. Team meeting on 11/07; anticipate discharge in near future. Time spent with patient: 25 - 35 minutes Discharge Plan - Med Rec/Dispo Referrals/Follow Up: Robin Lopez APRN [Family Provider] - (Robin Lopez APRN on 11/16/16 at 1:15 pm for Hosp. follow-up. . [place] [address] [place] [address]) Yasmany Salamanca MD [Physician] - (Dr. Mauricio Salamanca on 11/22/16 at 1:15 pm for Post-Op follow-up. [address] [place] [address]) Kev Instructions: Knee Replacement (GEN) Additional Instructions: Have INR rechecked on 11/13/16. PCP to follow INR and adjust Coumadin dose, if needed. Resume home medications. Prescriptions: New Warfarin Sodium [Coumadin] 4 mg PO DAILY #30 tab Oxycodone *Ir* [Roxicodone *Ir*] 5 - 10 mg PO Q4H PRN #50 tablet PRN Reason: Severe Pain Calcium Carbonate [Calcium] 1 tab PO DAILY #30 tab Continue Metoprolol Tartrate 25 mg PO BIDWM #0 tab Benazepril HCl 20 mg PO BID #0 tab Multivitamin with Minerals [Hair, Skin and Nails] 1 tab PO DAILY #0 Verapamil HCl 120 mg PO BID #0 Mexiletine [Mexitil] 150 mg PO Q8HR 30 Days #90 cap Furosemide [Lasix] 20 mg PO 2XW Flecainide [Tambocor] 50 mg PO BID [place]-3/Dha/Epa/Fish Oil [Fish Oil 1,000 mg Softgel] 1,000 mg PO DAILY Sennosides 17.2 mg PO DAILY PRN PRN Reason: Constipation Sennosides 17.2 mg PO HS Polyethylene Glycol 3350 [Miralax] 1 packet PO DAILY hydroCHLOROthiazide [Hydrochlorothiazide] 25 mg PO WB #0 tab Cholecalciferol (Vitamin D3) [Vitamin D3] 1 cap PO DAILY #0 Acetaminophen [Tylenol] 650 mg PO QID Discontinued Warfarin Sodium [Warfarin Sodium] 5 mg PO DAILY Warfarin Sodium [Warfarin Sodium] 1 mg PO DAILY Colchicine [Colcrys] 1 tab PO BID #6 tab Oxycodone/APAP 5/325 [Percocet 5/325] 1 tab PO 3-4XDPRN #10 tab Nozin Nasal Swab 1 each BRITTNEY 0600,1400,2200 Milk of Magnesia [Mom] 30 ml PO O Enoxaparin [Lovenox] 40 mg SQ Q24H Bisacodyl Supp [Dulcolax] 1 supp [place] DAILY PRN PRN Reason: Constipation DiphenhydrAMINE [Benadryl] 25 mg PO Q6H PRN PRN Reason: Itching Ativan 1 mg PO HS PRN PRN Reason: Sleep Oxycodone *Ir* [Roxicodone *Ir*] 5 - 15 mg PO Q3H PRN PRN Reason: Pain Docusate Sodium [Colace] 1 cap PO BID Discharge Instructions/Outpatient Orders: Final Provider Discharge Instructions Location: Determined By Patient - Disposition 01 Discharged Home, Self-Care
[2016-11-10] MEDS ORDERED: WARFARIN 4 MG TABLET PO SCH (12:00)
== END 2016-11-10 14:15 | disposition home health service (06) | DRG 560 ==
PROVIDERS: ADMIT Internal Medicine; ATTEND Internal Medicine